=== PATIENT | female | born 1960 | race Caucasian/White ===

== ENCOUNTER 2018-02-17 21:14 | Inpatient (IN) | payer BC ==
[2018-02-17] MEDS ORDERED: Ondansetron INJ* 2 MG/ML VIAL IV ONE (21:25)
[2018-02-17] MEDS ORDERED: NS 0.9% 1000 ML* 1,000 ML IV ONE ×2 (21:25→21:56)
[2018-02-17] MEDS ORDERED: Morphine INJ* 2 MG/ML 1 ML SYRINGE (TWO MG - NEW SYRINGE VERSION) IV ONE (21:25)
[2018-02-17] MEDS ORDERED: Ticagrelor* 90 MG TAB PO ONE (21:25)
[2018-02-17] MEDS ORDERED: Aspirin 81 mg CHEW TAB* 81 MG TAB.CHEW PO ONE (21:25)
[2018-02-17] MEDS ORDERED: Heparin for STEMI(*) 5,000 UNITS/ML 1 ML VIAL IV ONE (21:27)
[2018-02-17] MEDS ORDERED: Morphine INJ* 4 MG/ML 1 ML SYRINGE (NEW SYRINGE VERSION) ONE (21:29)
--- NOTE | 2018-02-17 21:33 | ED ---
HPI Chest Pain - HPI Summary HPI Summary: This is scribe Mo Campoverde documenting for attending Dr. Alcira Dunaway MD. This patient is a 57 year old F BIBA accompanied by her with a chief complaint of syncope since just PLUCK SEPARATOR. Patient reports diaphoresis, CP, and SOB. Pt was found at a concert with her where she had LOC. Pts reports that they were dancing when she bent over and passed out completely. She was carried out of the theater by EMS. Pt was found apneic and pulseless by EMS. She was given 2 Narcan en route, 4 in total. She was shocked 3 times with the AED, each time followed immediately by CPR, with no spontaneous pulses after the shocks. In the ambulance, she spontaneously started breathing for 3 minutes and then stopped again. Pt was cyanotic and completely drenched in sweat in the ambulance and the ED. EMS reports that her teeth were clenched en route. PMHX HTN, Crohns. No PMHx heart attack. SHX no EtOH, occasional marijuana use, lives in [place]. RX Stelara. Pt was not feeling well this evening before the concert but went anyways. Pt is not aware where she is in the ED. Pts reports she started a new medication two days ago for her Crones, called Stelara , and she has not been responding well to the change. The pt was in the hospital 2 weeks ago for Crones, has complained of CP since then. I, Dr. Dunaway, personally performed the services described in this documentation as scribed in my presence and it is both accurate and complete. - History of Current Complaint Chief Complaint: EDChestPainROMI Hx Obtained From: Family/Mushroom Laborer - , EMS Onset/Duration: Started Minutes Ago, Still Present Timing: Constant Initial Severity: Moderate Current Severity: Moderate Pain Intensity: 4 Pain Scale Used: 0-10 Numeric Chest Pain Location: Mid Sternal Associated Signs and Symptoms: Positive: Chest Pain, Shortness of Breath, Syncope, Diaphoresis - Allergy/Home Medications Allergies/Adverse Reactions: Allergies Allergy/AdvReac Type Severity Reaction Status Date / Time No Known Allergies Allergy Verified 02/17/18 21:26 PMH/Surg Hx/FS Hx/Imm Hx Cardiovascular History: Reports: Hx Hypertension GI History: Reports: Hx Crohn's Disease Infectious Disease History: No Infectious Disease History: Denies: Traveled Outside the [place] in Last 30 Days - Family History Known Family History: Positive: Hypertension - Social History Alcohol Use: None Substance Use Type: Reports: Marijuana Review of Systems Positive: Skin Diaphoresis Positive: Chest Pain Positive: Shortness Of Breath Positive: Syncope All Other Systems Reviewed And Are Negative: Yes Physical Exam - Summary Physical Exam Summary: GENERAL: Patient is a well-developed and morbidly obese female who is lying comfortable in the stretcher. Patient is not in any acute respiratory distress. HEAD AND FACE: No signs of trauma. No ecchymosis, hematomas or skull depressions. No sinus tenderness. EYES: PERRLA, EOMI x 2, No injected conjunctiva, no nystagmus. EARS: Hearing grossly intact. Ear canals and tympanic membranes are within normal limits. MOUTH: Oropharynx within normal limits. NECK: Supple, trachea is midline, no adenopathy, no JVD, no carotid bruit, no c- spine tenderness, neck with full ROM. CHEST: Symmetric, no tenderness at palpation LUNGS: Clear to auscultation bilaterally. No wheezing or crackles. CVS: Regular rate and rhythm, S1 and S2 present, no murmurs or gallops appreciated. ABDOMEN: Soft, non-tender. No signs of distention. No rebound no guarding, and no masses palpated. Bowel sounds are normal. EXTREMITIES: FROM in all major joints, no edema, no cyanosis or clubbing. NEURO: Alert and oriented x 3. No acute neurological deficits. Speech is normal and follows commands. SKIN: Dry and warm Triage Information Reviewed: Yes Vital Signs On Initial Exam: Initial Vitals Temp Pulse Resp BP Pulse Ox 97.8 F 89 24 118/79 96 02/17/18 21:17 02/17/18 21:17 02/17/18 21:17 02/17/18 21:17 02/17/18 21:17 Vital Signs Reviewed: Yes Diagnostics - Vital Signs Vital Signs Temp Pulse Resp BP Pulse Ox 02/17/18 21:17 97.8 F 89 24 118/79 96 - Laboratory Result Diagrams: 02/17/18 21:28 02/17/18 21:28 Lab Statement: Any lab studies that have been ordered have been reviewed, and results considered in the medical decision making process. - CT CXR CT Interpretation Completed By: ED Physician - no acute processes, pending official report - EKG 21:25 Cardiac Rate: NL EKG Rhythm: Sinus Rhythm - 85 EKG Interpretation: ST elevation in V3 and AVF; ST depr in 1 & AVL, consistent with inf wall CA Chest Pain Course/Dx - Course Course Of Treatment: This patient is a 57 year old F BIBA accompanied by her with a chief complaint of syncope since just PLUCK SEPARATOR. Patient reports diaphoresis, CP, and SOB. Pt was found at a concert with her where she had LOC. Pts reports that they were dancing when she bent over and passed out completely. She was carried out of the theater by EMS. Pt was found apneic and pulseless by EMS. She was given 2 Narcan en route, 4 in total. She was shocked 3 times with the AED, each time followed immediately by CPR, with no spontaneous pulses after the shocks. In the ambulance, she spontaneously started breathing for 3 minutes and then stopped again. Pt was cyanotic and completely drenched in sweat in the ambulance and the ED. EMS reports that her teeth were clenched en route. PMHX HTN, Crohns. No PMHx heart attack. SHX no EtOH, occasional marijuana use, lives in [place]. RX Stela. Pt was not feeling well this evening before the concert but went anyways. Pt is not aware where she is in the ED. Pts reports she started a new medication two days ago for her Crones, called Sadaf, and she has not been responding well to the change. The pt was in the hospital 2 weeks ago for Crones, has complained of CP since then. An EKG reveals ST elevation in V3 and AVF, ST depression in 1 and AVL, most consistent with inferior wall CA. CXR reveals, per ED physician, no acute processes. Pending official report. Test results with no significant abnormalities except for low potassium (2.6) and elevated lactic acid (5.5). In the ED course the patient was given Aspirin, Heparin, and IV fluids. We discussed patient care with Dr. Garduno and they recommended admission to the Department Clerk. The patient is agreeable with this plan. - Diagnoses Provider Diagnoses: Acute CA, inferior wall, Cardiac arrest - Critical Care Time Critical Care Time: 30-74 min - 40 mins Discharge - Sign-Out/Discharge Documenting (check all that apply): Patient Departure - admit - Discharge Plan Condition: Fair Disposition: ADMITTED TO [facility] - Attestation Statements Document Initiated by Scribe: Yes Documenting Scribe: Mo Campoverde Provider For Whom Scribe is Documenting (Include Credential): Alcira Dunaway MD Scribe Attestation: Mo Naranjo, scribed for Alcira Dunaway MD on 02/17/18 at 2221.
[2018-02-17 21:36] LABS: ABS Basophils 0.1 10^3/ul (0-0.2); ABS Eosinophils 0.1 10^3/ul (0-0.6); ABS Lymphocytes 3.8 10^3/ul (1.0-4.8); ABS Monocytes 0.8 10^3/ul (0-0.8); ABS Neutrophils 7.6 10^3/ul (1.5-7.7); ABS Nucleated RBC 0 10^3/ul; Eosinophil % 1.1 % (0-6); Hematocrit 36 % (35-47); Hemoglobin 11.8 g/dl (12.0-16.0); Lymphocyte % 30.3 % (25-47); Mean Corpuscular HGB Conc 32 g/dl (31-36); Mean Corpuscular Hemoglobin 25 pg (27-31); Mean Corpuscular Volume 76 fL (80-97); Mean Platelet Volume 6.6 um3 (7.4-10.4); Nucleated Red Blood Cells % 0.1; Platelet Count 357 10^3/ul (150-450); Red Cell Distribution Width 20 % (10.5-15); White Blood Count 12.5 10^3/ul (3.5-10.8)
[2018-02-17 21:44] LABS: INR 1.03 (0.77-1.02)
[2018-02-17] MEDS ORDERED: Heparin 2 UNITS/ML IVPREMIX* 2,000 ML IV ONE (21:49)
[2018-02-17] MEDS ORDERED: Lidocaine 1% INJ* 10 MG/ML 30 ML SDV ONE (21:49)
[2018-02-17] MEDS ORDERED: Midazolam* 1 MG/ML 10 ML VIAL (10 MG) ONE (21:52)
[2018-02-17] MEDS ORDERED: fentaNYL* 50 MCG/ML 2 ML VIAL (100 MCG VIAL) ONE (21:52)
[2018-02-17] MEDS ORDERED: Heparin(*) 1000 UNIT/ML 10 ML VIAL CATH LAB IV ONE (21:52)
[2018-02-17] MEDS ORDERED: nitroGLYCERIN DRIP* 25,000 MCG/250 ML BTL ONE (21:53)
[2018-02-17] MEDS ORDERED: Iohexol 350 (CONTRAST) 200 ML MDV IV ONE ×2 (21:53→22:09)
[2018-02-17] MEDS ORDERED: VERAPAMIL 2.5 MG/ML 2 ML VIAL ** 5 mg/2 ml ONE (21:53)
[2018-02-17 21:54] LABS: EGFR Non-African American 53.8 (>60)
[2018-02-17] MEDS ORDERED: Potassium Chlor TAB* 20 MEQ TAB.ER PO ONE (21:56)
[2018-02-17] MEDS ORDERED: Magnesium Sulfate 2 GM IV* 2 GM/50 ML BAG IVPB ONE (21:56)
[2018-02-17] MEDS ORDERED: KCL 20 MEQ/100 ML IVPREMIX* 20 MEQ/100 ML BAG IV ONE (21:57)
[2018-02-17] MEDS ORDERED: KCL 20 MEQ/100 ML IVPREMIX* 20 MEQ/100 ML BAG ONE (21:58)
[2018-02-17] MEDS ORDERED: Iodixanol* (CONTRAST) 320 MG/ML 100 ML SDV ONE (22:15)
[2018-02-17] MEDS ORDERED: Docusate CAP* 100 MG PO PRN (23:16)
[2018-02-17] MEDS ORDERED: Al Hydrox/Mg Hydrox/Simet LIQ* 30 ML UDC PO PRN (23:16)
[2018-02-17] MEDS ORDERED: Senna TAB PO PRN (23:16)
[2018-02-17] MEDS ORDERED: Ondansetron INJ* 2 MG/ML VIAL IV PRN (23:16)
[2018-02-17] MEDS ORDERED: Magnesium Sulfate 1 GM IV* 1 GM/100 ML BAG IV ONE (23:19)
[2018-02-18] MEDS ORDERED: Dextrose 50% Syringe 50 ML* 25 GM/50 ML SYRINGE IV PUSH PRN (00:04)
[2018-02-18] MEDS: NS 0.9% 1000 ML* 1,000 ML IV SCH ×2 (00:44→09:21)
[2018-02-18] MEDS ORDERED: Iodixanol* (CONTRAST) 320 MG/ML 100 ML SDV IV ONE (00:45)
[2018-02-18] MEDS: Morphine VIAL* 4 MG/ML VIAL (1 ml vial) IV PRN ×5 (00:51→21:54)
--- NOTE | 2018-02-18 02:09 | RAD ---
EXAM: CT Angiography Chest With Intravenous Contrast EXAM DATE/TIME: Exam ordered 02/18/2018 1:15 AM CLINICAL HISTORY: 57 years old, female; Pain; Chest wall pain and sternal or substernal pain; Patient HX: Cardiac arrest earlier /chest compression's; Additional info: R/O pe TECHNIQUE: Axial computed tomographic angiography images of the chest with intravenous contrast using pulmonary embolism protocol. All CT scans at this facility use at least one of these dose optimization techniques: automated exposure control; mA and/or kV adjustment per patient size (includes targeted exams where dose is matched to clinical indication); or iterative reconstruction. MIP reconstructed images were created and reviewed. Coronal and sagittal reformatted images were created and reviewed. CONTRAST: 96 mL of VISIPAQUE 320 administered intravenously. COMPARISON: No relevant prior studies available. FINDINGS: Pulmonary arteries: The main pulmonary artery measures 27 mm. No pulmonary embolism is identified. Aorta: The ascending thoracic aorta measures 31 mm. No thoracic aortic aneurysm. Lungs: Mild bibasilar fibro-atelectatic change, greatest in the lower lobes. There is question of minimal patchy ground glass infiltrates. No mass. Pleural space: Unremarkable. No significant effusion. No pneumothorax. Heart: Coronary artery calcifications are present. No significant pericardial effusion. No evidence of RV dysfunction. Bones/joints: No acute fracture. No dislocation. Soft tissues: Unremarkable. Lymph nodes: Unremarkable. No enlarged lymph nodes. IMPRESSION: 1. Mild bibasilar fibro-atelectatic change, greatest in the lower lobes with question of minimal patchy ground glass infiltrates. 2. Otherwise negative CTA chest. No pulmonary embolism is identified. To contact [facility] with a general question: [facility] - [phone] For direct physician to physician contact: Physician Hotline - [phone] [facility] ([facility] Facility ID #[id number])
--- NOTE | 2018-02-18 02:11 | CONS ---
INTERVENTIONAL CARDIOLOGY CONSULT NOTE: DATE OF CONSULT: 02/17/18 HISTORY OF PRESENT ILLNESS: A 57-year-old woman brought by paramedics from a local theater where she had a witnessed arrest. Interventional Cardiology was consulted because of an abnormal electrocardiogram and witnessed in the field arrest resuscitated by 3 AED shocks and CPR. She has no previous cardiac history, history is obtained primarily from her . The patient is arousable and oriented, but has difficulty with short-term memory. She apparently has a longstanding history of Crohn's disease, was discharged from [facility] on 02/08/18 after a flare-up where she had unremitting diarrhea, nausea, vomiting. On 02/15/18, she received an infusion of Stelara, a new drug for her. Apparently, she did not feel well today and called her regional flatbed truck driver's office, was told to hydrate. While at this concert, she and her stood up to dance and the patient suddenly collapsed. She was unresponsive, CPR was started by bystanders. An AED was applied and advised a shock. Paramedics arrived, apparently she had return of circulation briefly a few times, but reverted to no palpable pulse. There are no strips from the paramedics. . At arrival in the ER, she was apparently conscious, EKG showed sinus rhythm at 85 with a long QTc of 599 msec, and T wave inversion in I, aVL, V2 with nonspecific ST changes in the other leads, there was a wandering baseline with perhaps a fraction of a millimeter of inferior ST elevation. Because of her sudden cardiac arrest and repolarization abnormalities and the inability to rule out a non-ST elevation infarct, she underwent emergent catheterization. After resuscitation, the patient is complaining of severe chest pain, which at least in large part is from her rib cage, but she cannot determine if she has any other kind of chest pain. She had no chest pain prior to passing out. She has no previous history of heart disease, does not carry the diagnosis of an abnormal EKG previously. PAST MEDICAL HISTORY: 1. Obesity. 2. Hypertension. 3. Crohn's disease. SOCIAL HISTORY: She is an intermittent smoker. She is . FAMILY HISTORY: Apparently negative for premature coronary artery disease. MEDICATIONS: Prehospital medications at this point are unclear, her and friends will gather this information and call us to the ICU. ALLERGIES: None to medications. REVIEW OF SYSTEMS: She denies any history of stroke, GI bleeding, even with her Crohn's flare-ups. Cardiac: No prior history. Pulmonary: Negative. Remainder all negative. PHYSICAL EXAMINATION: When seen in the ER, BP 118/79, pulse 89. Her lungs were clear, JVP was not elevated. Carotids were palpable. She was able to converse, give some limited history, was aware of her surroundings, did not know the date, had trouble remembering why she was in [place]. She denied any focal neurological symptoms. Cardiac Exam: Rhythm regular, no audible gallop or murmur, but heart sounds were very distant. Abdomen: Obese, nontender. No bruits. Radial, femoral, pedal pulses palpable. No cyanosis, clubbing, or edema. Neuro: She grossly moved all extremities equally, the face was symmetrical, EOMs grossly symmetrical. DIAGNOSTIC STUDIES/LAB DATA: EKG, as above. Hemoglobin 11.8 with microcytosis at 76. Sodium 125, potassium 2.6, BUN 10, creatinine 1.06. GFR 53.8. Random blood sugar 273 with lactate of 5.5. Magnesium low at 1.8. Troponin 0.08 after CPR and at least 1 defibrillation. BNP 123. Potassium and magnesium were started in the ER where she also received Brilinta and aspirin. IMPRESSION: Cardiac arrest. She has repolarization changes, has chest pain, which may be from CPR and/or may be from ischemia, at this point, I cannot rule out acute coronary syndrome with a non-ST elevation infarct. She was recommended to undergo emergent catheterization. She has some cognitive impairment currently without any gross motor deficit. She has QT prolongation, but it is unknown whether this is from her metabolic derangement or preexisting. We will need to obtain old records. [id number]/[facility] #: [id number] [facility]
--- NOTE | 2018-02-18 03:25 | HP ---
CC: Dr. Tucker in [place] * HISTORY AND PHYSICAL: DATE OF ADMISSION: 02/17/18. TIME OF EVALUATION: 2300. PRIMARY CARE PHYSICIAN: Dr. Tucker in [place]. CHIEF COMPLAINT: Cardiac arrest. HISTORY OF PRESENT ILLNESS: This is a 57-year-old female with a past medical history of Crohn's, diabetes, and hypertension, who presents to the emergency room after having a cardiac arrest. The history is obtained somewhat from the patient, but also the , who is at the bedside. The patient was recently admitted at [facility] for a Crohn's flare. She was there for nearly a week and was discharged home on the . They started her on a new Crohn's regimen that included an infusion of Stelara on the and he just completed prednisone and Flagyl. On the 02/14/18, she was having 2 normal stool per day, normally has diarrhea and she was increasing her solid intake as well and doing relatively well. She has been having dizzy spells immediately upon standing that are brief and does not occur every time. Today, she was feeling weak. She had an episode of vomiting. The plan was for her and her and friends to drive in town to see the [employer]. They called her primary to make sure that it was no reason why she should not be able to go. They said it was okay to stay hydrated, which she has been drinking a lot of water. When they got to the [employer], they were doing well. They stood up for the first song, they sat back down for the 4th song. They stood up again and then she quickly collapsed into her chair. The noticed that she was unresponsive. People immediately came rushing over there and started chest compression. EMS came and they continued with chest compressions, it appears that there was an AED on site that stated there was shockable rhythm and she was shocked. We do not have these rhythm strips to see what her rhythm actually was. It appears that she had 10 to 15 minutes of CPR due to the history and her EKG, Dr. Garduno was contacted for evaluation and he promptly brought her to the ammunition assembly laborer where she had clean coronaries. On arrival to the ICU, I was contacted, the patient is alert, somewhat out of it, but able to answer questions appropriately. She remembers being at the concert, but she does not really remember anything after that. She is complaining of pleuritic pain at this time and chest pain. No nausea, vomiting. No abdominal pain. No urinary symptoms. Review of systems is limited at this time due to the patient being sedated for the cath. In the emergency room, the patient was given 2 L of fluid. She was given Brilinta in the ammunition assembly laborer. She was given 20 mEq of potassium IV, Zofran 8 mg, morphine 4 mg, heparin 4000 units, 4 bolus of aspirin. She was also given heparin and Versed in the ammunition assembly laborer. PAST MEDICAL HISTORY: 1. Crohn's, was recently hospitalized for a Crohn's flare, discharged on , she is followed by Dr. Chris Bales at [facility]. 2. History of hypokalemia. 3. Diabetes. 4. GERD. 5. Hypertension. MEDICATIONS: We will need to get an official med rec, the patient recalls most of them. 1. Iron pill p.o. b.i.d. 2. Prilosec 20 mg daily. 3. Victoza daily. 4. Losartan/HCTZ 100/25 mg daily. 5. Metformin 500 mg p.o. daily. 6. Mercaptopurine 50 mg daily. 7. Stelara injections. ALLERGIES: No known drug allergies. FAMILY HISTORY: Mother is alive. No history of [place]. Father , aged 76 from GBM, no history of early coronary disease. SOCIAL HISTORY: The patient lives in [place] with her , Lanny, who is her healthcare proxy. She works for insurance, Medicare and Medicaid. She quit smoking 1 month ago. She was smoking 2 cigarettes per day. No alcohol use. She does use marijuana. Code status is full code. REVIEW OF SYSTEMS: Limited and as mentioned in the HPI, limited due to patient' s sedation. PHYSICAL EXAMINATION GENERAL: The patient is sedated, but awake and answer questions appropriately. VITAL SIGNS: Temp 97.1, pulse rate 84, respiratory rate 22, oxygen saturation 96% on room air, blood pressure 88/40. HEENT: Head, normocephalic. Pupils are dilated and sluggish. Conjunctivae are anicteric. Oropharynx: Mucous membranes dry. NECK: Supple. No lymphadenopathy. RESPIRATORY: Diminished breath sounds. No wheeze, rhonchi, or rales. CARDIAC: Regular rate and rhythm. Soft systolic murmur heard throughout. ABDOMEN: Morbidly obese. Positive bowel sounds. Soft, nontender, and nondistended. EXTREMITIES: No clubbing, cyanosis or edema. +1 DPs. NEUROLOGIC: She is alert and oriented x3. No gross focal or neurologic deficits. LABORATORY DATA: White count 12.5, hemoglobin 11.8, hematocrit 36, platelets 357. INR was 1.03. Sodium 125, potassium 2.6, chloride 89, bicarb 17. BUN 10, creatinine 1.06. Glucose 273, lactic acid is 5.5, glucose 201, AST 41, ALT 59, mag 1.8, trop is 0.08. BNP 123. TSH 4.72. RADIOGRAPHIC DATA: EKG shows sinus rhythm with a prolonged QTc of 557 with inverted T-waves and minimal ST elevation in the anterior leads. Chest x-ray was read as unremarkable. ASSESSMENT: This is a 57-year-old female with past medical history of Crohn's, diabetes, and hypertension, who presents to the emergency room after having a cardiac arrest, found to have clean coronary arteries. 1. Cardiac arrest. Assessment: The patient with presyncopal symptoms leading up to her collapse. It is possible this was a syncopal episode. The concern initially is did she truly ever lose a pulse or was this a syncopal episode. However, she did have an AED placed that stated she had a shockable rhythm if it was truly accurate. The other concern is her EKG shows a prolonged QTc. Dr. Garduno did the cath, which did not show any coronary disease, but did show hyperdynamic ventricle. The question is was this an arrhythmia in the setting of long QT syndrome or did she have hypertrophic obstructive cardiomyopathy. Also, on the differential is the pulmonary embolism with her recent hospitalization, though she did state she was getting injections in her abdomen for DVT prophylaxis. Plan: We will continue her in the ICU. Continue electrolyte replacement with magnesium and potassium. We will repeat those labs this evening. Continue her on fluids. I am going to order a CTA to rule out pulmonary embolism. She has an echo scheduled for the morning. The merit system director are going to follow up with her as well. We are going to try to obtain the strips from EMS but I suspect if its from an AED then we will not be able to obtain the strips. 2. Hypokalemia as mentioned this is likely why she was vomiting and she may chronically run low with her diarrhea, though she has not been having diarrhea. She also has a low sodium. It is unclear if she has some sort of endocrinology disorder. Plan: As mentioned, repeat her potassium and mag, and repeat her labs. 3. Chronic medical problems: Diabetes. We will place her on lispro sliding scale and hold her oral agents. 4. Gastroesophageal reflux disease. Continue omeprazole. 5. Hypertension. Her blood pressures are soft. We will hold her losartan and hydrochlorothiazide. 6. Crohn's. We will continue her on mercaptopurine. 7. FEN. We will do a bedside swallow and if she passes, we will allow for diabetic diet. 8. DVT prophylaxis. The patient scores moderate risk. We will place her on heparin subcu t.i.d. 9. Code status. Full code. TIME SPENT: Greater than 60 minutes were spent doing the history and physical, more than half the time was spent in direct patient contact and critical care time. We will sign out to Dr. Young, and we are also in discussion with Dr. Garduno. [id number]/[facility] #: [id number] [facility]
[2018-02-18] MEDS: Heparin VIAL(*) 5000 UNITS/ML VIAL (FIVE THOUSAND) SUBCUT SCH ×3 (05:06→21:51)
[2018-02-18 05:28] LABS: ABS Basophils 0 10^3/ul (0-0.2); ABS Eosinophils 0 10^3/ul (0-0.6); ABS Lymphocytes 0.8 10^3/ul (1.0-4.8); ABS Monocytes 0.4 10^3/ul (0-0.8); ABS Neutrophils 6.4 10^3/ul (1.5-7.7); ABS Nucleated RBC 0 10^3/ul; Eosinophil % 0.1 % (0-6); Hematocrit 33 % (35-47); Hemoglobin 10.8 g/dl (12.0-16.0); Mean Corpuscular HGB Conc 33 g/dl (31-36); Mean Corpuscular Hemoglobin 25 pg (27-31); Mean Corpuscular Volume 76 fL (80-97); Mean Platelet Volume 7.1 um3 (7.4-10.4); Nucleated Red Blood Cells % 0; Platelet Count 221 10^3/ul (150-450); Red Blood Count 4.36 10^6/ul (4.00-5.40); Red Cell Distribution Width 19 % (10.5-15); White Blood Count 7.6 10^3/ul (3.5-10.8)
[2018-02-18] MEDS ORDERED: Omeprazole CAP* 20 MG PO SCH (06:00)
[2018-02-18 06:37] LABS: EGFR Non-African American 85.5 (>60)
--- NOTE | 2018-02-18 07:31 | RAD ---
Indication: Shortness of breath. Chest pain. Cardiac arrest. Comparison: Subsequent CT chest of February 18, 2018. Technique: Upright AP 2130 hours Report: Mild prominence of the interstitial markings. No focal pulmonary lesion, compelling alveolar consolidation, pleural effusion, pneumothorax. The heart, pulmonary vasculature, and mediastinal contours are unremarkable. IMPRESSION: #. No acute cardiopulmonary process evident. R0
[2018-02-18] MEDS ORDERED: Perflutren Lipid Microsphere* 3 ML VIAL ONE (08:10)
--- NOTE | 2018-02-18 08:22 | PN ---
Date of Service: 02/18/18 Critical Care Services: 57F with htn, dm, crohns disease presents after VT/VF? cardiac arrest. S/p LHC without obstructive cad. Long QT on admission. Initial labs abnormal. 02/18: patient complains of chest pain 2/2 cpr. TTE pending. CTA chest negative. Vital Signs: Temp Pulse Resp BP SpO2 FiO2 98.1 F 71 15 100/66 97 02/18/18 07:30 02/18/18 07:30 02/18/18 07:30 02/18/18 07:30 02/18/18 07:30 Physical Exam: Gen - nad heent - ncat, eomi, perrl neck - no jvd cv - s1/s2, no murmur, chest tender to palpation lungs - cta, no wheeze abd - soft, nt, nd ext - no cce neuro - non-focal Fluid Balance (Past 24 Hours): I= O= Net Intake & Output 02/16/18 02/17/18 02/18/18 02/19/18 06:59 06:59 06:59 06:59 Intake Total 1092 Output Total 1275 120 Balance -183 -120 Weight 105 kg Intake: IV Fluids 1092 NS (0.9%) 1092 Output: Kendrick 1275 120 Labs: Laboratory Results - last 24 hr 02/17/18 02/17/18 02/17/18 21:28 21:28 21:28 WBC 12.5 H RBC 4.80 Hgb 11.8 L Hct 36 MCV 76 L MCH 25 L MCHC 32 RDW 20 H Plt Count 357 MPV 6.6 L Neut % (Auto) 61.0 Lymph % (Auto) 30.3 Marshall % (Auto) 6.6 Eos % (Auto) 1.1 Baso % (Auto) 1.0 Absolute Neuts (auto) 7.6 Absolute Lymphs (auto) 3.8 Absolute Monos (auto) 0.8 Absolute Eos (auto) 0.1 Absolute Basos (auto) 0.1 Absolute Nucleated RBC 0 Nucleated RBC % 0.1 INR (Anticoag Therapy) 1.03 H APTT 28.0 Sodium 125 L Potassium 2.6 L* Chloride 89 L Carbon Dioxide 17 L Anion Gap 19 H BUN 10 Creatinine 1.06 H Est GFR ( Amer) 65.1 Est GFR (Non-Af Amer) 53.8 BUN/Creatinine Ratio 9.4 Glucose 273 H POC Glucose (mg/dL) Hemoglobin A1c Lactic Acid Calcium 8.7 Magnesium 1.8 L Total Bilirubin 0.90 AST 41 H ALT 59 H Alkaline Phosphatase 57 Total Creatine Kinase 123 CK-MB (CK-2) 6.6 H Troponin I 0.08 H* B-Natriuretic Peptide Total Protein 6.0 L Albumin 3.6 Globulin 2.4 Albumin/Globulin Ratio 1.5 Triglycerides Cholesterol LDL Cholesterol HDL Cholesterol TSH 4.72 02/17/18 02/17/18 02/17/18 21:28 21:28 21:28 WBC RBC Hgb Hct MCV MCH MCHC RDW Plt Count MPV Neut % (Auto) Lymph % (Auto) Marshall % (Auto) Eos % (Auto) Baso % (Auto) Absolute Neuts (auto) Absolute Lymphs (auto) Absolute Monos (auto) Absolute Eos (auto) Absolute Basos (auto) Absolute Nucleated RBC Nucleated RBC % INR (Anticoag Therapy) APTT Sodium Potassium Chloride Carbon Dioxide Anion Gap BUN Creatinine Est GFR ( Amer) Est GFR (Non-Af Amer) BUN/Creatinine Ratio Glucose POC Glucose (mg/dL) Hemoglobin A1c 6.5 H Lactic Acid 5.5 H* Calcium Magnesium Total Bilirubin AST ALT Alkaline Phosphatase Total Creatine Kinase CK-MB (CK-2) Troponin I B-Natriuretic Peptide 123 H Total Protein Albumin Globulin Albumin/Globulin Ratio Triglycerides Cholesterol LDL Cholesterol HDL Cholesterol TSH 02/17/18 02/17/18 02/17/18 23:45 23:53 23:53 WBC RBC Hgb Hct MCV MCH MCHC RDW Plt Count MPV Neut % (Auto) Lymph % (Auto) Marshall % (Auto) Eos % (Auto) Baso % (Auto) Absolute Neuts (auto) Absolute Lymphs (auto) Absolute Monos (auto) Absolute Eos (auto) Absolute Basos (auto) Absolute Nucleated RBC Nucleated RBC % INR (Anticoag Therapy) APTT Sodium Potassium 3.4 L Chloride Carbon Dioxide Anion Gap BUN Creatinine Est GFR ( Amer) Est GFR (Non-Af Amer) BUN/Creatinine Ratio Glucose POC Glucose (mg/dL) 201 H Hemoglobin A1c Lactic Acid 1.1 Calcium Magnesium Total Bilirubin AST ALT Alkaline Phosphatase Total Creatine Kinase CK-MB (CK-2) Troponin I 0.27 H* B-Natriuretic Peptide Total Protein Albumin Globulin Albumin/Globulin Ratio Triglycerides Cholesterol LDL Cholesterol HDL Cholesterol TSH 02/18/18 02/18/18 02/18/18 05:18 05:18 07:55 WBC 7.6 RBC 4.36 Hgb 10.8 L Hct 33 L MCV 76 L MCH 25 L MCHC 33 RDW 19 H Plt Count 221 MPV 7.1 L Neut % (Auto) 84.4 H Lymph % (Auto) 10.0 L Marshall % (Auto) 5.3 Eos % (Auto) 0.1 Baso % (Auto) 0.2 Absolute Neuts (auto) 6.4 Absolute Lymphs (auto) 0.8 L Absolute Monos (auto) 0.4 Absolute Eos (auto) 0 Absolute Basos (auto) 0 Absolute Nucleated RBC 0 Nucleated RBC % 0 INR (Anticoag Therapy) APTT Sodium 132 L Potassium 3.0 L Chloride 101 Carbon Dioxide 22 Anion Gap 9 BUN 8 Creatinine 0.71 Est GFR ( Amer) 103.4 Est GFR (Non-Af Amer) 85.5 BUN/Creatinine Ratio 11.3 Glucose 163 H POC Glucose (mg/dL) 140 H Hemoglobin A1c Lactic Acid Calcium 7.8 L Magnesium Total Bilirubin AST ALT Alkaline Phosphatase Total Creatine Kinase CK-MB (CK-2) Troponin I 0.31 H* B-Natriuretic Peptide Total Protein Albumin Globulin Albumin/Globulin Ratio Triglycerides 202 Cholesterol 164 LDL Cholesterol 97 HDL Cholesterol 26.9 TSH Studies: CXR 02/17 IMPRESSION: #. No acute cardiopulmonary process evident. CTA Chest 02/18 IMPRESSION: 1. Mild bibasilar fibro-atelectatic change, greatest in the lower lobes with question of minimal patchy ground glass infiltrates. 2. Otherwise negative CTA chest. No pulmonary embolism is identified. TTE 02/18 Pending [facility] 02/18 Official Report Pending Impression: 57F with htn, dm, crohns disease presents with cardiac arrest possibly 2/2 long qtc vs hypokalemia vs syncope from dehydration Plan: Neuro - pain control CV - cardiac arrest? - unclear if actually had arrest or just syncope - [facility] negative - long qtc on initial ekg - repeat ekg now - keep K > 4, Mg > 2 - tte pending - cta chest negative for PE - cardiology consult - monitor on telemetry Pulm - oxygenating well on room air ID - no evidence of infection GI - crohns disease - c/w 6MP and stelara Renal - hyponatremia, hypokalemia - replete lytes prn - monito i/o Heme - monitor cbc Endo - check fs, niss Lines - piv PPx - gi/dvt Full Code Critical Care Time: 45 mins
[2018-02-18] MEDS ORDERED: NS 0.9% 1000 ML* 1,000 ML IV ONE (08:23)
[2018-02-18] MEDS: KCL 10 MEQ/50 ML IVPREMIX* 10 MEQ/50 ML BAG IV SCH ×3 (09:13→11:58)
[2018-02-18] MEDS: Mercaptopurine TAB* 50 MG PO SCH (09:14)
[2018-02-18] MEDS: Acetaminophen TAB* 325 MG PO PRN ×2 (09:14→13:16)
[2018-02-18] MEDS: Potassium Chlor TAB* 20 MEQ TAB.ER PO SCH ×2 (09:14→13:16)
--- NOTE | 2018-02-18 09:17 | CONSULT ---
Subjective Date of Service: 02/18/18 Interval History: Admission Date: 02/17/18 CARDIOLOGY CONSULT NOTE: DATE OF CONSULT: 02/18/18 CC: Out of hospital cardiac arrest Reason for consult: Out of hospital cardiac arrest HISTORY OF PRESENT ILLNESS: Lily Calderón is a 57-year-old woman from [place] visiting for a concert when she had sudden collapse. There was no preceeding prodrome or symptoms other than chronic GI symptoms. She received bystander CPR and successful AED resuscitation. She has history of crohn's disease with electrolyte deficiency and was on flagyl up until Thursday. Her QT interval was severely prolonged. She has no history of long QT syndrome. She has no family history of early unexplained sudden . She is neurologically intact. A cardiac catheterization did not show evidence of obstructive CAD. An echocardiogram showed a structurally normal heart. She complains of musculoskeletal chest pain post-CPR PAST MEDICAL HISTORY: 1. Obesity. 2. Hypertension. 3. Crohn's disease with recent admission at [facility] for flair SOCIAL HISTORY: She is an intermittent smoker. She is , present FAMILY HISTORY: No early unexplained sudden in a first or second degree relative ALLERGIES: None to medications. Medications Active Medications: Acetaminophen (Tylenol Tab*) 650 mg PO Q4H PRN PRN Reason: FEVER/PAIN Al Hydrox/Mg Hydrox/Simethicone (Maalox Plus*) 30 ml PO Q6H PRN PRN Reason: INDIGESTION Dextrose (D50w Syringe 50 Ml*) 12.5 gm IV PUSH .FOR FS < 60 - SS PRN PRN Reason: FS < 60 Docusate Sodium (Colace Cap*) 100 mg PO BID PRN PRN Reason: CONSTIPATION Heparin Sodium (Porcine) (Heparin Vial(*)) 5,000 units SUBCUT Q8HR [facility] Last Admin: 02/18/18 05:06 Dose: 5,000 units Sodium Chloride (Ns 0.9% 1000 Ml*) 1,000 mls @ 125 mls/hr IV .per rate [facility] Stop: 02/23/18 23:29 Last Admin: 02/18/18 00:44 Dose: 125 mls/hr Potassium Chloride (Potassium Chloride 10 Meq/50 Ml Ivpremix*) 10 meq in 50 mls @ 50 mls/hr IV Q1H [facility] Stop: 02/18/18 11:59 Sodium Chloride (Ns 0.9% 1000 Ml*) 1,000 mls @ 1,000 mls/hr IV ONCE ONE Stop: 02/18/18 09:22 Insulin Human Lispro (Humalog*) 0 units SUBCUT AC [facility]; Protocol Mercaptopurine (Purinethol Tab*) 50 mg PO DAILY [facility] Morphine Sulfate (Morphine Vial*) 2 mg IV Q4H PRN PRN Reason: PAIN - MILD Last Admin: 02/18/18 05:22 Dose: 2 mg Nadolol (Corgard Tab*) 40 mg PO DAILY [facility] Omeprazole (Prilosec Cap*) 20 mg PO 0600 [facility] Last Admin: 02/18/18 05:06 Dose: 20 mg Potassium Chloride (Klor Con Er Tab*) 40 meq PO Q4H [facility] Stop: 02/18/18 13:01 Senna (Senokot Tab*) 1 tab PO BID PRN PRN Reason: CONSTIPATION Home Medications: Ferrous Sulfate TAB* 325 mg PO BID 02/18/18 [History Confirmed 02/18/18] Liraglutide (NF) [Victoza (NF)] 0 mg SUBCUT DAILY 02/18/18 [History Confirmed ] Losartan/Hydrochlorothiazide [Losartan Potassium/Hydroc 100-25 mg] 1 tab PO DAILY 02/18/18 [History Confirmed 02/18/18] Mercaptopurine TAB* [Purinethol TAB*] 50 mg PO 02/18/18 [History] Omeprazole CAP* [Prilosec CAP* 20 MG] 20 mg PO DAILY 02/18/18 [History Confirmed 02/18/18] Venlafaxine CAP (NF) [Effexor CAP (NF)] 75 mg PO DAILY 02/18/18 [History Confirmed 02/18/18] metFORMIN* [Glucophage 500 MG TAB *] 500 mg PO DAILY 02/18/18 [History Confirmed 02/18/18] budeosone-fumeoreraol recent flagyl Review of Systems - Measurements Intake and Output: Intake and Output Last 24 Hours 02/16/18 02/17/18 02/18/18 02/19/18 06:59 06:59 06:59 06:59 Intake Total 1092 Output Total 1275 120 Balance -183 -120 Weight 231 lb 7.766 oz Intake: IV Fluids 1092 NS (0.9%) 1092 Output: Kendrick 9352 120 - Review of Systems Constitutional Symptoms: Negative: Weight Gain, Weight Loss Dermatology: Negative: Rash, Skin Lesions HEENT: Negative: Change in Hearing, Vertigo Eyes: Negative: Change in Vision, Double Vision Thyroid: Negative: Cold Intolerance, Heat Intolerance, Weight Loss, Weight Gain Pulmonary: Negative: Cough, Sputum, Respiratory Distress, Shortness of Breath Cardiology: Positive: Syncope Negative: Shortness of Breath, Edema, Faintness Gastroenterology: Positive: Abdominal Pain, Nausea, Vomiting, Change in Bowel Habits Negative: Haematemesis, Melena Genital - Urinary: Negative: Dysuria, Hematuria Musculoskeletal: Negative: Joint Pain, Joint Stiffness Endocrinology: Positive: Obesity, Diabetes Negative: Diabetic Foot Ulcers, Calluses, Hirsutism, Menstrual Abnormalities , Polydipsia, Polyuria, Gynecomastia Hematologic/Lymphatic: Negative: Hx Leukemia, Hx Lymphoma Neurology: Negative: Dizziness, Change in Balancing, Change in Speech, Change in Sphincter Function, Hx of Stroke\TIA, Hx Seizures Psychiatry: Negative: Unusual Anxiety, Suicidal Ideation Allergic/Immunologic: Negative: Hx Anaphylaxis, Hx Angioedema, Hx HIV, Immunocompromise Review of Systems Statement: All other review of systems negative, unless stated above. Objective Vital Signs: Temp Pulse Resp BP Pulse Ox 98.2 F 74 18 108/69 100 02/18/18 08:30 02/18/18 08:30 02/18/18 08:30 02/18/18 08:30 02/18/18 08:30 Oxygen Devices in Use Now: None Appearance: nad, pleasant Ears/Nose/Mouth/Throat: Clear Oropharnyx Neck: NL Appearance and Movements; NL JVP, Trachea Midline Respiratory: Symmetrical Chest Expansion and Respiratory Effort, Clear to Auscultation Cardiovascular: NL Sounds; No Murmurs; No JVD, RRR, No Edema Abdominal: NL Sounds; No Tenderness; No Distention Extremities: No Edema, - - right radial cath site intact Skin: No Rash or Ulcers Neurological: Alert and Oriented x 3, - - sore ribs Laboratory Results: 02/18/18 05:18 02/18/18 05:18 INR (Anticoag Therapy) 1.03 (0.77-1.02) H 02/17/18 21:28 APTT 28.0 seconds (26.0-36.3) 02/17/18 21:28 Total Bilirubin 0.90 mg/dL (0.2-1.0) 02/17/18 21:28 AST 41 U/L (13-39) H 02/17/18 21:28 ALT 59 U/L (7-52) H 02/17/18 21:28 Alkaline Phosphatase 57 U/L (34-104) 02/17/18 21:28 CK-MB (CK-2) 6.6 ng/mL (0.6-6.3) H 02/17/18 21:28 B-Natriuretic Peptide 123 pg/mL (-100) H 02/17/18 21:28 Total Protein 6.0 g/dL (6.4-8.9) L 02/17/18 21:28 Albumin 3.6 g/dL (3.2-5.2) 02/17/18 21:28 Globulin 2.4 g/dL (2-4) 02/17/18 21:28 Albumin/Globulin Ratio 1.5 (1-3) 02/17/18 21:28 Triglycerides 202 mg/dL 02/18/18 05:18 Cholesterol 164 mg/dL 02/18/18 05:18 LDL Cholesterol 97 mg/dL 02/18/18 05:18 HDL Cholesterol 26.9 mg/dL 02/18/18 05:18 TSH 4.72 mcIU/mL (0.34-5.60) 02/17/18 21:28 mg 1.8 02/17/18 02/17/18 02/18/18 21:28 23:53 05:18 Troponin I 0.08 H* 0.27 H* 0.31 H* Diagnostic Imagin02/17/2018 LHC: No significant CAD, hyperdynamic LVEF 02/18/2018 echo: Mild concentric LVH, otherwise normal LV and RV size and function, definity used EKG Data: EKG 02/03/2018: NSR, normal ekg Initial EKG: NSR, V1-V3 and 1/aVL T wave inversions with qtc up to 600 ms EKG 02/18/2018: NSR, normal QtC precordial leads, leads 1 and aVL remain dysfunctional Assessment/Plan Sita Calderón is a 57 year old woman admitted with out of hospital VT/VF cardiac arrest secondary to long QT interval in the setting of severe (K 2.6, Mg 1.8) electrolyte deficiency, effexor (conditional), omeprazole (conditional) and recent flagyl d/c 3 days ago (conditional) use - Discontinue zofran (ordered) as drug contraindicated with long QT interval - Hold all other BP medications - Start nadolol 40 mg po daily (ordered) and uptitrate as tolerated - Add omeprazole and effexor to allergy list - Add thiazide diuretic (hypokalemia) to allergy list - Replace K to 4.0 or greater and Mg to 2.0 or greater - Patient needs vice president media relations approval for any new medications and/or can use [email or web address] as a reference. This was also discussed with patient and family members at bedside. Discussed with EP, Dr. Landeros at [facility] by phone and reviewed EKG's. Will continue to monitor daily EKG's. If residual T wave/QT abnormalities in 1, aVL and inferior leads do not resolve 48-72 hours post-cardiac arrest and electrolyte replacement, will arrange for a secondary prevention ICD. If EKG entirely normalizes, tentative plan is for a lifevest placement and outpatient EP evaluation for genetic testing Thank you for allowing me to participate in the cardiovascular care of this patient. Please do not hesitate to contact me with questions or concerns.
--- NOTE | 2018-02-18 10:10 | ECHO ---
Patient: [facility] Rec#: [id number] : 1960 Date: 02/18/2018 Age: 57y Height: 170 cm / 66.9 in Weight: 127.01 kg / 279.9 lbs Sex: F BSA: 2.33 Room#: [facility] Admit Date#: 02/17/2018 Type: Inpatient Referring: Milind Garduno MD Reading: Joo Dalal DO Activity Director: [facility] Tran[facility] Echocardiogram Indication: Cardiac Arrest. BP: 107/67 HR: 70 Rhythm: NSR Findings History: Hypokalemia, Crohn's, systolic murmur, HTN, MO. Technical Comments: The study is technically limited due to patient body habitus. Completed at 0845. Left Ventricle: The left ventricular chamber size is normal. Mild concentric left ventricular hypertrophy is observed. Global left ventricular wall motion and contractility are within normal limits. There is normal left ventricular systolic function. The estimated ejection fraction is 55-60%. Abnormal left ventricular diastolic function is observed. Left Atrium: The left atrial chamber size is normal. Right Ventricle: The right ventricular chamber size and systolic function are within normal limits. Right Atrium: The right atrium is mildly dilated. Aortic Valve: The aortic valve is trileaflet. The aortic valve leaflets are mildly thickened. There is no evidence of aortic regurgitation. There is no evidence of aortic stenosis. Mitral Valve: There is a trace of mitral regurgitation. There is no evidence of mitral stenosis. Tricuspid Valve: The tricuspid valve leaflets are normal. There is trace tricuspid regurgitation. Unable to estimate the right ventricular systolic pressure. There is no tricuspid stenosis. Pulmonic Valve: The pulmonic valve appears normal. There is a trace pulmonic regurgitation. There is no pulmonic stenosis. Pericardium: There is no significant pericardial effusion. Aorta: There is mild dilatation of the ascending aorta. There is no dilatation of the aortic arch. The aortic root is normal in size. Pulmonary Artery: The main pulmonary artery appears normal. Venous: The inferior vena cava is dilated. There is an approximate 50% respiratory change in the inferior vena cava dimension. Conclusions The left ventricular chamber size is normal. Mild concentric left ventricular hypertrophy is observed. There is normal left ventricular systolic function. The estimated ejection fraction is 55-60%. Global left ventricular wall motion and contractility are within normal limits. Normal LA size Normal RV size and function No significant valvular abnormalities noted Definity used to enhance imaging None prior for comparison at time of interpretation Measurements Name Value Normal Range RVIDd (AP) 2D 3.5 cm (0.9 - 2.6) RVDdMajor (2D) 4.4 cm (2.2 - 4.4) RAd ISD 4CH 5.1 cm (3.4 - 4.9) RA (A4C)W 4.2 cm (2.9 - 4.6) IVSd (2D) 1.1 cm (0.6 - 1) LVPWd (2D) 1.1 cm (0.6 - 1) LVIDd (2D) 4 cm (3.6 - 5.4) LVIDs (2D) 3.6 cm - LV FS (2D) 11 % (25 - 45) Aortic Annulus 2.2 cm (1.4 - 2.6) Ao root diameter (2D) 3.5 cm (2.1 - 3.5) Ascending Ao 3.6 cm (2.1 - 3.4) Aortic arch 2.3 cm (1.8 - 3.4) LA dimension (AP) 2D 3.6 cm (2.3 - 3.8) LAd ISD 4CH 4.7 cm (2.9 - 5.3) LA ISD 4CH W 4.1 cm (2.5 - 4.5) Name Value Normal Range LA ESV BP (A/L) index 19 ml/m2 - Name Value Normal Range MV E-wave Vmax 0.6 m/sec - MV deceleration time 197 msec - MV A-wave Vmax 0.8 m/sec - MV E:A ratio 0.8 ratio - LV septal e' Vmax 0.08 m/sec - LV lateral e' Vmax 0.09 m/sec - LV E:e' septal ratio 7.5 ratio - LV E:e' lateral ratio 6.67 ratio - Name Value Normal Range AV Vmax 1.4 m/sec - AV VTI 23.7 cm - AV peak gradient 8 mmHg - AV mean gradient 5 mmHg - LVOT Vmax 0.9 m/sec - LVOT VTI 15.3 cm - LVOT peak gradient 3 mmHg - LVOT mean gradient 1 mmHg - ALFREDO Vmax 1.2 m/sec - Name Value Normal Range IVC diameter 2.5 cm - Name Value Normal Range PV Vmax 1 m/sec - PV peak gradient 4 mmHg -
[2018-02-18] MEDS: Insulin LISPRO* 1 UNITS UNIT SUBCUT SCH ×3 (10:20→22:02)
[2018-02-18] MEDS: Nadolol TAB* 40 MG PO SCH (10:21)
[2018-02-18] MEDS ORDERED: Magnesium Sulfate 1 GM IV* 1 GM/100 ML BAG IV ONE (10:58)
[2018-02-18] MEDS ORDERED: Ketorolac INJ* 15 MG/ML 1 ML VIAL IV PUSH ONE (12:58)
[2018-02-19] MEDS: Morphine VIAL* 4 MG/ML VIAL (1 ml vial) IV PRN (02:26)
[2018-02-19] MEDS: Heparin VIAL(*) 5000 UNITS/ML VIAL (FIVE THOUSAND) SUBCUT SCH ×3 (06:48→20:42)
[2018-02-19 06:54] LABS: ABS Basophils 0.1 10^3/ul (0-0.2); ABS Eosinophils 0.1 10^3/ul (0-0.6); ABS Lymphocytes 1.6 10^3/ul (1.0-4.8); ABS Monocytes 0.3 10^3/ul (0-0.8); ABS Neutrophils 3.2 10^3/ul (1.5-7.7); ABS Nucleated RBC 0 10^3/ul; Eosinophil % 1.3 % (0-6); Hematocrit 33 % (35-47); Hemoglobin 10.8 g/dl (12.0-16.0); Lymphocyte % 30.3 % (25-47); Mean Corpuscular HGB Conc 33 g/dl (31-36); Mean Corpuscular Hemoglobin 25 pg (27-31); Mean Corpuscular Volume 76 fL (80-97); Mean Platelet Volume 7.2 um3 (7.4-10.4); Nucleated Red Blood Cells % 0.1; Platelet Count 203 10^3/ul (150-450); Red Blood Count 4.33 10^6/ul (4.00-5.40); Red Cell Distribution Width 22 % (10.5-15); White Blood Count 5.4 10^3/ul (3.5-10.8)
[2018-02-19 08:10] LABS: EGFR Non-African American 107.9 (>60)
[2018-02-19] MEDS: Insulin LISPRO* 1 UNITS UNIT SUBCUT SCH ×3 (09:05→18:06)
[2018-02-19] MEDS: Mercaptopurine TAB* 50 MG PO SCH (09:47)
[2018-02-19] MEDS: Nadolol TAB* 40 MG PO SCH (09:47)
[2018-02-19] MEDS ORDERED: oxyCODONE/Acetamin 5/325 MG* TAB PO PRN (14:34)
--- NOTE | 2018-02-19 14:47 | PN ---
Subjective Date of Service: 02/19/18 Interval History: Seen with partner at bedside Main complaint is pain in sternum especially when coughing Would like avoid morphine if possible Objective Active Medications: Acetaminophen (Tylenol Tab*) 650 mg PO Q4H PRN PRN Reason: FEVER/PAIN Last Admin: 02/18/18 13:16 Dose: 650 mg Al Hydrox/Mg Hydrox/Simethicone (Maalox Plus*) 30 ml PO Q6H PRN PRN Reason: INDIGESTION Dextrose (D50w Syringe 50 Ml*) 12.5 gm IV PUSH .FOR FS < 60 - SS PRN PRN Reason: FS < 60 Docusate Sodium (Colace Cap*) 100 mg PO BID PRN PRN Reason: CONSTIPATION Heparin Sodium (Porcine) (Heparin Vial(*)) 5,000 units SUBCUT Q8HR [facility] Last Admin: 02/19/18 13:33 Dose: Not Given Ibuprofen (Motrin Tab*) 600 mg PO Q8H [facility] Stop: 02/23/18 07:01 Insulin Human Lispro (Humalog*) 0 units SUBCUT [facility]; Protocol Last Admin: 02/19/18 13:27 Dose: Not Given Mercaptopurine (Purinethol Tab*) 50 mg PO DAILY [facility] Last Admin: 02/19/18 09:47 Dose: 50 mg Morphine Sulfate (Morphine Vial*) 2 mg IV Q4H PRN PRN Reason: PAIN - MILD Last Admin: 02/19/18 02:26 Dose: 2 mg Nadolol (Corgard Tab*) 40 mg PO DAILY [facility] Last Admin: 02/19/18 09:47 Dose: 40 mg Oxycodone/Acetaminophen (Percocet 5/325 Tab*) 1 tab PO Q6H PRN PRN Reason: PAIN Senna (Senokot Tab*) 1 tab PO BID PRN PRN Reason: CONSTIPATION Vital Signs - 8 hr 02/19/18 02/19/18 08:00 09:46 Temperature 97.8 F Pulse Rate 70 Respiratory 20 20 Rate Blood Pressure 126/72 (mmHg) O2 Sat by Pulse 100 Oximetry Oxygen Devices in Use Now: None Appearance: Well appearing, NAD Eyes: No Scleral Icterus, PERRLA Ears/Nose/Mouth/Throat: Clear Oropharnyx, Mucous Membranes Moist Neck: NL Appearance and Movements; NL JVP, Trachea Midline Respiratory: Symmetrical Chest Expansion and Respiratory Effort, Clear to Auscultation Cardiovascular: RRR Abdominal: NL Sounds; No Tenderness; No Distention, No Hepatosplenomegaly Lymphatic: No Cervical Adenopathy Neurological: Alert and Oriented x 3 Result Diagrams: 02/19/18 06:34 02/19/18 06:34 Microbiology and Other Data: Microbiology 02/17/18 23:20 Nasal Screen MRSA (PCR) - Final Nasal Mrsa Not Detected Assess/Plan/Problems-Billing Assessment: 57 yo F h/o crohns s/p out of hospital cardiac arrest thought possible VF/VT in setting of prolonged QTc - Patient Problems (1) Cardiac arrest Comment: Appreciate cardiology direction. Following EKGs daily which will guide decision for lifevest at discharge Maintain K>4 and Mg >2 No new meds without checking QTc effects Nadolol 40mg (2) Crohns disease Comment: stable (3) Hypertension Comment: nadolol HCTZ now listed as allergy due to hypokalemia (4) Pain Comment: 2/2 chest compressions add motrin standing x 4 days percocet PRN (5) DVT prophylaxis Comment: HSQ
--- NOTE | 2018-02-19 15:05 | PN ---
Subjective Date of Service: 02/19/18 Interval History: f/u VT/VF out of hospital cardiac arrest neurologically intact has costal pain from cpr no wrist or hand pain electrolytes this AM normal AM EKG continues to improve, has not normalized tele: no arrhythmia Medications Active Medications: Acetaminophen (Tylenol Tab*) 650 mg PO Q4H PRN PRN Reason: FEVER/PAIN Last Admin: 02/18/18 13:16 Dose: 650 mg Al Hydrox/Mg Hydrox/Simethicone (Maalox Plus*) 30 ml PO Q6H PRN PRN Reason: INDIGESTION Dextrose (D50w Syringe 50 Ml*) 12.5 gm IV PUSH .FOR FS < 60 - SS PRN PRN Reason: FS < 60 Docusate Sodium (Colace Cap*) 100 mg PO BID PRN PRN Reason: CONSTIPATION Heparin Sodium (Porcine) (Heparin Vial(*)) 5,000 units SUBCUT Q8HR [facility] Last Admin: 02/19/18 13:33 Dose: Not Given Ibuprofen (Motrin Tab*) 600 mg PO Q8H [facility] Stop: 02/23/18 07:01 Insulin Human Lispro (Humalog*) 0 units SUBCUT [facility]; Protocol Last Admin: 02/19/18 13:27 Dose: Not Given Mercaptopurine (Purinethol Tab*) 50 mg PO DAILY [facility] Last Admin: 02/19/18 09:47 Dose: 50 mg Morphine Sulfate (Morphine Vial*) 2 mg IV Q4H PRN PRN Reason: PAIN - MILD Last Admin: 02/19/18 02:26 Dose: 2 mg Nadolol (Corgard Tab*) 80 mg PO DAILY [facility] Oxycodone/Acetaminophen (Percocet 5/325 Tab*) 1 tab PO Q6H PRN PRN Reason: PAIN Senna (Senokot Tab*) 1 tab PO BID PRN PRN Reason: CONSTIPATION Objective Vital Signs: Temp Pulse Resp BP Pulse Ox 97.8 F 70 20 126/72 100 02/19/18 09:46 02/19/18 09:46 02/19/18 09:46 02/19/18 09:46 02/19/18 09:46 Oxygen Devices in Use Now: None Appearance: nad, pleasant Ears/Nose/Mouth/Throat: Clear Oropharnyx Neck: NL Appearance and Movements; NL JVP, Trachea Midline Respiratory: Symmetrical Chest Expansion and Respiratory Effort, Clear to Auscultation Cardiovascular: NL Sounds; No Murmurs; No JVD, RRR, No Edema Abdominal: NL Sounds; No Tenderness; No Distention Extremities: No Edema, - - right radial cath site intact no pain, distal radial pulse not well felt, adequate perfusion with poor capillary refill delayed filling both devin/reverse devin Skin: No Rash or Ulcers Neurological: Alert and Oriented x 3, - - sore ribs Laboratory Results: 02/19/18 06:34 02/19/18 06:34 INR (Anticoag Therapy) 1.03 (0.77-1.02) H 02/17/18 21:28 APTT 28.0 seconds (26.0-36.3) 02/17/18 21:28 Total Bilirubin 0.90 mg/dL (0.2-1.0) 02/17/18 21:28 AST 41 U/L (13-39) H 02/17/18 21:28 ALT 59 U/L (7-52) H 02/17/18 21:28 Alkaline Phosphatase 57 U/L (34-104) 02/17/18 21:28 CK-MB (CK-2) 6.6 ng/mL (0.6-6.3) H 02/17/18 21:28 B-Natriuretic Peptide 123 pg/mL (-100) H 02/17/18 21:28 Total Protein 6.0 g/dL (6.4-8.9) L 02/17/18 21:28 Albumin 3.6 g/dL (3.2-5.2) 02/17/18 21:28 Globulin 2.4 g/dL (2-4) 02/17/18 21:28 Albumin/Globulin Ratio 1.5 (1-3) 02/17/18 21:28 Triglycerides 202 mg/dL 02/18/18 05:18 Cholesterol 164 mg/dL 02/18/18 05:18 LDL Cholesterol 97 mg/dL 02/18/18 05:18 HDL Cholesterol 26.9 mg/dL 02/18/18 05:18 TSH 4.72 mcIU/mL (0.34-5.60) 02/17/18 21:28 AM mag 2.0 02/17/18 02/17/18 02/18/18 21:28 23:53 05:18 Troponin I 0.08 H* 0.27 H* 0.31 H* 02/18/18 12:05 Troponin I 0.23 H* Diagnostic Imagin02/17/2018 LHC: No significant CAD, hyperdynamic LVEF 02/18/2018 echo: Mild concentric LVH, otherwise normal LV and RV size and function, definity used EKG Data: EKG 02/03/2018: NSR, normal ekg Initial EKG: NSR, V1-V3 and 1/aVL T wave inversions with qtc up to 600 ms EKG 02/18/2018: NSR, normal QtC precordial leads, leads 1 and aVL remain dysfunctional Assessment/Plan Sita Calderón is a 57 year old woman admitted with out of hospital VT/VF cardiac arrest s/p bystander CPR/succesful AED resuscitation neurologically intact secondary to long QT interval in the setting of severe (K 2.6, Mg 1.8) electrolyte deficiency, effexor (conditional), omeprazole (conditional) and recent flagyl d/c 3 days ago (conditional) use - Increase nadolol from 40 mg to 80 po daily (ordered) - Would add flagyl, omeprazole and effexor to allergy list - Add thiazide diuretic (hypokalemia) to allergy list - Replace K to 4.0 or greater and Mg to 2.0 or greater - Patient needs group home manager approval for any new medications and/or can use [email or web address] as a reference. This was also discussed with patient and family members at bedside. - Repeat BMP, Mg tomorrow AM - Check tomorrow AM EKG (ordered), see original consult note for details Thank you for allowing me to participate in the cardiovascular care of this patient. Please do not hesitate to contact me with questions or concerns.
[2018-02-19] MEDS: Ibuprofen TAB* 600 MG PO SCH ×2 (16:13→23:01)
--- NOTE | 2018-02-19 21:33 | CATH ---
CATH REPORT: DATE OF CATH: 02/17/18 PROCEDURE: Right radial artery access, bilateral selective coronary cineangiography, left heart cath eterization, and left ventriculography. HISTORY: A 57-year-old woman with Crohn's disease with witnessed in the field arrest with shockable rhythm by AED x3, resuscitated. In the ER, she had marked QTc prolongation, T-wave inversion in the inferolateral leads, and chest pain. It was impossible to determine whether she was experiencing car diac pain in addition to CPR-induced chest pain. She underwent emergent catheterization to rule out an ischemic etiology. PROCEDURE ACCESS: Right radial artery. SHEATH: 6F Slender. MEDICATIONS: 1. Subcu lidocaine. 2. IV Versed. 3. IV fentanyl. 4. Heparin 3000 units. DIAGNOSTIC CATHETER: 5F TIG4, 5F pigtail. HEMODYNAMICS: Initial AO 79/36 post radial cocktail, LV 105/10-23, no aortic valve gradient on pullb ack. ANGIOGRAPHY: RCA. The RCA is large, dominant, the PDA is large, rises as an acute marginal branch. There are several smaller posterolateral branches. The RCA has no significant stenosis, does have mi ld irregularity. Left main. The left main is normal in size, has no stenosis. LAD. The LAD is moderate, ends at the apex, it supplies a moderate mid diagonal, the LAD has no sten osis, has mild irregularity. Circumflex. The circumflex is not dominant, is moderate, supplies a single moderate marginal branch, has no significant stenosis. LV gram. Papillary muscles are prominent with near mid cavity obliteration, estimated LVEF in excess of 60% post PVC, there was no evidence of mitral regurgitation. CONCLUSION: 1. No significant obstructive coronary disease. 2. Normal LV systolic function with near cavity obliteration raising the possibility of hypertrophic obstructive cardiomyopathy, subsequently not confirmed by echo. 3. Elevated LVEDP, otherwise normal left-sided hemodynamics post resuscitation. 4. Successful right radial artery access. 5. ACS etiology for her cardiac arrest has been ruled out. [id number]/[facility] #: [id number]
[2018-02-20 05:35] LABS: ABS Basophils 0 10^3/ul (0-0.2); ABS Eosinophils 0.1 10^3/ul (0-0.6); ABS Lymphocytes 1.3 10^3/ul (1.0-4.8); ABS Monocytes 0.2 10^3/ul (0-0.8); ABS Neutrophils 1.8 10^3/ul (1.5-7.7); ABS Nucleated RBC 0 10^3/ul; Eosinophil % 2.6 % (0-6); Hematocrit 33 % (35-47); Hemoglobin 10.4 g/dl (12.0-16.0); Lymphocyte % 37.2 % (25-47); Mean Corpuscular HGB Conc 32 g/dl (31-36); Mean Corpuscular Hemoglobin 25 pg (27-31); Mean Corpuscular Volume 78 fL (80-97); Mean Platelet Volume 6.9 um3 (7.4-10.4); Nucleated Red Blood Cells % 0.2; Platelet Count 173 10^3/ul (150-450); Red Blood Count 4.19 10^6/ul (4.00-5.40); Red Cell Distribution Width 21 % (10.5-15); White Blood Count 3.5 10^3/ul (3.5-10.8)
[2018-02-20] MEDS: Heparin VIAL(*) 5000 UNITS/ML VIAL (FIVE THOUSAND) SUBCUT SCH ×3 (05:44→21:10)
[2018-02-20 06:00] LABS: EGFR Non-African American 86.9 (>60)
[2018-02-20] MEDS: Ibuprofen TAB* 600 MG PO SCH ×3 (06:32→22:23)
[2018-02-20] MEDS ORDERED: Magnesium Sulfate IV* 2 GM in NS 0.9% 100 ML* 100 ML IVPB ONE (09:00)
[2018-02-20] MEDS: Insulin LISPRO* 1 UNITS UNIT SUBCUT SCH ×3 (09:20→18:01)
[2018-02-20] MEDS: Magnesium Oxide TAB* 400 MG PO SCH (09:21)
[2018-02-20] MEDS: Nadolol TAB* 40 MG PO SCH (09:22)
[2018-02-20] MEDS: Mercaptopurine TAB* 50 MG PO SCH (09:22)
--- NOTE | 2018-02-20 15:25 | PN ---
Subjective Date of Service: 02/20/18 Interval History: Pain in sternum is much improved with standing motrin No complaints. She is still weighing options and considering whether to proceed with ICD. Objective Active Medications: Acetaminophen (Tylenol Tab*) 650 mg PO Q4H PRN PRN Reason: FEVER/PAIN Last Admin: 02/18/18 13:16 Dose: 650 mg Al Hydrox/Mg Hydrox/Simethicone (Maalox Plus*) 30 ml PO Q6H PRN PRN Reason: INDIGESTION Dextrose (D50w Syringe 50 Ml*) 12.5 gm IV PUSH .FOR FS < 60 - SS PRN PRN Reason: FS < 60 Docusate Sodium (Colace Cap*) 100 mg PO BID PRN PRN Reason: CONSTIPATION Heparin Sodium (Porcine) (Heparin Vial(*)) 5,000 units SUBCUT Q8HR [facility] Last Admin: 02/20/18 13:03 Dose: Not Given Ibuprofen (Motrin Tab*) 600 mg PO Q8H [facility] Stop: 02/23/18 07:01 Last Admin: 02/20/18 14:13 Dose: 600 mg Insulin Human Lispro (Humalog*) 0 units SUBCUT [facility]; Protocol Last Admin: 02/20/18 13:00 Dose: 1 units Magnesium Oxide (Magox 400 Tab*) 800 mg PO DAILY [facility] Last Admin: 02/20/18 09:21 Dose: 800 mg Mercaptopurine (Purinethol Tab*) 50 mg PO DAILY [facility] Last Admin: 02/20/18 09:22 Dose: 50 mg Morphine Sulfate (Morphine Vial*) 2 mg IV Q4H PRN PRN Reason: PAIN - MILD Last Admin: 02/19/18 02:26 Dose: 2 mg Nadolol (Corgard Tab*) 80 mg PO DAILY [facility] Last Admin: 02/20/18 09:22 Dose: 80 mg Oxycodone/Acetaminophen (Percocet 5/325 Tab*) 1 tab PO Q6H PRN PRN Reason: PAIN Senna (Senokot Tab*) 1 tab PO BID PRN PRN Reason: CONSTIPATION Vital Signs - 8 hr 02/20/18 02/20/18 02/20/18 08:00 09:13 09:21 Temperature 97.9 F Pulse Rate 71 71 Respiratory 20 16 Rate Blood Pressure 145/71 140/74 (mmHg) O2 Sat by Pulse 100 100 Oximetry 10/06/18 10/06/18 09:22 11:21 Temperature 96.1 F Pulse Rate 64 Respiratory 16 Rate Blood Pressure 140/74 136/74 (mmHg) O2 Sat by Pulse 100 Oximetry Oxygen Devices in Use Now: None Appearance: NAD Eyes: No Scleral Icterus Ears/Nose/Mouth/Throat: NL Teeth, Lips, Gums, Clear Oropharnyx Neck: NL Appearance and Movements; NL JVP, Trachea Midline Respiratory: Symmetrical Chest Expansion and Respiratory Effort, Clear to Auscultation Cardiovascular: RRR Abdominal: NL Sounds; No Tenderness; No Distention, No Hepatosplenomegaly Lymphatic: No Cervical Adenopathy Extremities: No Edema Skin: No Rash or Ulcers Neurological: Alert and Oriented x 3 Result Diagrams: 02/20/18 05:16 02/20/18 05:16 Microbiology and Other Data: Microbiology 02/17/18 23:20 Nasal Screen MRSA (PCR) - Final Nasal Mrsa Not Detected Assess/Plan/Problems-Billing Assessment: 57 yo F h/o crohns s/p out of hospital cardiac arrest 2/2 vfib arrest ( confirmed on EMS strips) in setting of electrolyte abnormalities, medications and prolonged QTc - Patient Problems (1) Cardiac arrest Comment: Appreciate cardiology direction. Decision to proceed with ICD up to pt. Pt meetings with family today. Maintain K>4 and Mg >2 No new meds without checking QTc effects Nadolol increased to 80mg Mg daily (2) Crohns disease Comment: stable (3) Hypertension Comment: nadolol HCTZ now listed as allergy due to hypokalemia (4) Pain Comment: 2/2 chest compressions motrin standing x 4 days (d2/4) percocet PRN (5) DVT prophylaxis Comment: HSQ
[2018-02-21] MEDS: Heparin VIAL(*) 5000 UNITS/ML VIAL (FIVE THOUSAND) SUBCUT SCH ×2 (04:43→13:27)
[2018-02-21] MEDS: Ibuprofen TAB* 600 MG PO SCH ×3 (06:17→22:05)
[2018-02-21 06:19] LABS: EGFR Non-African American 94.6 (>60)
[2018-02-21] MEDS: Insulin LISPRO* 1 UNITS UNIT SUBCUT SCH ×3 (09:06→17:21)
[2018-02-21] MEDS: Mercaptopurine TAB* 50 MG PO SCH (09:07)
[2018-02-21] MEDS: Nadolol TAB* 40 MG PO SCH (09:07)
[2018-02-21] MEDS: Magnesium Oxide TAB* 400 MG PO SCH (09:09)
--- NOTE | 2018-02-21 10:27 | PN ---
Subjective Date of Service: 02/21/18 Interval History: f/u PMVT/torsades cardiac arrest due to long QT Patients musculoskeletal CP post-CPR pain improved no dyspnea tele: no arrhythmia Medications Active Medications: Acetaminophen (Tylenol Tab*) 650 mg PO Q4H PRN PRN Reason: FEVER/PAIN Last Admin: 02/18/18 13:16 Dose: 650 mg Al Hydrox/Mg Hydrox/Simethicone (Maalox Plus*) 30 ml PO Q6H PRN PRN Reason: INDIGESTION Dextrose (D50w Syringe 50 Ml*) 12.5 gm IV PUSH .FOR FS < 60 - SS PRN PRN Reason: FS < 60 Docusate Sodium (Colace Cap*) 100 mg PO BID PRN PRN Reason: CONSTIPATION Heparin Sodium (Porcine) (Heparin Vial(*)) 5,000 units SUBCUT Q8HR [facility] Stop: 02/21/18 20:00 Last Admin: 02/21/18 04:43 Dose: Not Given Sodium Chloride (Ns 0.9% 1000 Ml*) 1,000 mls @ 75 mls/hr IV PER RATE [facility] Ibuprofen (Motrin Tab*) 600 mg PO Q8H [facility] Stop: 02/23/18 07:01 Last Admin: 02/21/18 06:17 Dose: 600 mg Insulin Human Lispro (Humalog*) 0 units SUBCUT [facility]; Protocol Last Admin: 02/21/18 09:06 Dose: 2 units Magnesium Oxide (Magox 400 Tab*) 800 mg PO DAILY [facility] Last Admin: 02/21/18 09:09 Dose: 800 mg Mercaptopurine (Purinethol Tab*) 50 mg PO DAILY [facility] Last Admin: 02/21/18 09:07 Dose: 50 mg Morphine Sulfate (Morphine Vial*) 2 mg IV Q4H PRN PRN Reason: PAIN - MILD Last Admin: 02/19/18 02:26 Dose: 2 mg Nadolol (Corgard Tab*) 80 mg PO DAILY [facility] Last Admin: 02/21/18 09:07 Dose: 80 mg Oxycodone/Acetaminophen (Percocet 5/325 Tab*) 1 tab PO Q6H PRN PRN Reason: PAIN Senna (Senokot Tab*) 1 tab PO BID PRN PRN Reason: CONSTIPATION Objective Vital Signs: Temp Pulse Resp BP Pulse Ox 98.1 F 63 16 128/74 100 02/21/18 07:47 02/21/18 07:47 02/21/18 07:47 02/21/18 07:47 02/21/18 07:47 Oxygen Devices in Use Now: None Appearance: nad, pleasant Ears/Nose/Mouth/Throat: Clear Oropharnyx Neck: NL Appearance and Movements; NL JVP, Trachea Midline Respiratory: Symmetrical Chest Expansion and Respiratory Effort, Clear to Auscultation Cardiovascular: NL Sounds; No Murmurs; No JVD, RRR, No Edema Abdominal: NL Sounds; No Tenderness; No Distention Extremities: No Edema, - Skin: No Rash or Ulcers Neurological: Alert and Oriented x 3, - - sore ribs Laboratory Results: 02/20/18 05:16 02/21/18 05:54 INR (Anticoag Therapy) 1.03 (0.77-1.02) H 02/17/18 21:28 APTT 28.0 seconds (26.0-36.3) 02/17/18 21:28 Total Bilirubin 0.90 mg/dL (0.2-1.0) 02/17/18 21:28 AST 41 U/L (13-39) H 02/17/18 21:28 ALT 59 U/L (7-52) H 02/17/18 21:28 Alkaline Phosphatase 57 U/L (34-104) 02/17/18 21:28 CK-MB (CK-2) 6.6 ng/mL (0.6-6.3) H 02/17/18 21:28 B-Natriuretic Peptide 123 pg/mL (-100) H 02/17/18 21:28 Total Protein 6.0 g/dL (6.4-8.9) L 02/17/18 21:28 Albumin 3.6 g/dL (3.2-5.2) 02/17/18 21:28 Globulin 2.4 g/dL (2-4) 02/17/18 21:28 Albumin/Globulin Ratio 1.5 (1-3) 02/17/18 21:28 Triglycerides 202 mg/dL 02/18/18 05:18 Cholesterol 164 mg/dL 02/18/18 05:18 LDL Cholesterol 97 mg/dL 02/18/18 05:18 HDL Cholesterol 26.9 mg/dL 02/18/18 05:18 TSH 4.72 mcIU/mL (0.34-5.60) 02/17/18 21:28 mg today 2.0 02/17/18 02/17/18 02/18/18 21:28 23:53 05:18 Troponin I 0.08 H* 0.27 H* 0.31 H* 02/18/18 12:05 Troponin I 0.23 H* Diagnostic Imagin02/17/2018 LHC: No significant CAD, hyperdynamic LVEF 02/18/2018 echo: Mild concentric LVH, otherwise normal LV and RV size and function, definity used EKG Data: EKG 02/03/2018: NSR, normal ekg Initial EKG: NSR, V1-V3 and 1/aVL T wave inversions with qtc up to 600 ms EKG 02/18/2018: NSR, normal QtC precordial leads, leads 1 and aVL remain dysfunctional ekg today: NSR, normal Qtc, isolated TWI 1 and aVL Assessment/Plan Sita Calderón is a 57 year old woman admitted with out of hospital cardiac arrest secondary to torsades/PMVT s/p bystander CPR/succesful AED resuscitation neurologically intact secondary to long QT interval in the setting of severe (K 2.6, Mg 1.8) electrolyte deficiency, effexor (conditional), omeprazole ( conditional) and recent flagyl d/c 3 days prior (conditional) and symbicort ( drug to avoid). QT interval has normalized. - Continue nadolol 80 po daily - Patient to discontinue and avoid any QT prolonging medications - Add thiazide diuretic (hypokalemia) to allergy list - Replace K to 4.0 or greater and Mg to 2.0 or greater - Continue magnesium oral 800 mg po daily - Patient needs liquor establishment manager approval for any new medications and/or can use [email or web address] as a reference. This was also discussed with patient and family members at bedside. I have had multiple, prolonged conversations with patient and family members throughout the course of her hospitalization. They have also done independent investigation on their own regarding her episode. In summary, it is uncertain at this point if her arrest was QT prolongation acquired only vs. acquired + congenital and she has not had genetic testing. Particularly if congenital long QT could be excluded, her risk of recurrent events would be very low with electrolyte replacement, avoiding offending medications and nadolol use. She also understands that an unlikely recurrent event could be life threatening ( such as with electrolyte depletion during a severe crohn's flare - a difficult to reverse condition). We discussed the risks and benefits of the following options which I think are all reasonable. With shared decision making and patient preference in an uncertain situation, she has chose option 3 for secondary prevention of cardiac arrest which will be arranged for tomorrow with Dr. Bowie (hold sq heparin after tongiht, npo, start ivf - all ordered) 1. No lifevest or ICD 2. Lifevest and formal EP consult as an outpatient for genetic testing 3. ICD placement Thank you for allowing me to participate in the cardiovascular care of this patient. Please do not hesitate to contact me with questions or concerns.
--- NOTE | 2018-02-21 16:02 | PN ---
Subjective Date of Service: 02/21/18 Interval History: Pain in chest much better after several days NSAIDs OOB and ambulating tele- no events Objective Active Medications: Acetaminophen (Tylenol Tab*) 650 mg PO Q4H PRN PRN Reason: FEVER/PAIN Last Admin: 02/18/18 13:16 Dose: 650 mg Al Hydrox/Mg Hydrox/Simethicone (Maalox Plus*) 30 ml PO Q6H PRN PRN Reason: INDIGESTION Dextrose (D50w Syringe 50 Ml*) 12.5 gm IV PUSH .FOR FS < 60 - SS PRN PRN Reason: FS < 60 Docusate Sodium (Colace Cap*) 100 mg PO BID PRN PRN Reason: CONSTIPATION Heparin Sodium (Porcine) (Heparin Vial(*)) 5,000 units SUBCUT Q8HR [facility] Stop: 02/21/18 20:00 Last Admin: 02/21/18 13:27 Dose: Not Given Sodium Chloride (Ns 0.9% 1000 Ml*) 1,000 mls @ 75 mls/hr IV PER RATE [facility] Ibuprofen (Motrin Tab*) 600 mg PO Q8H [facility] Stop: 02/23/18 07:01 Last Admin: 02/21/18 15:15 Dose: 600 mg Insulin Human Lispro (Humalog*) 0 units SUBCUT [facility]; Protocol Last Admin: 02/21/18 12:44 Dose: 3 units Magnesium Oxide (Magox 400 Tab*) 800 mg PO DAILY [facility] Last Admin: 02/21/18 09:09 Dose: 800 mg Mercaptopurine (Purinethol Tab*) 50 mg PO DAILY [facility] Last Admin: 02/21/18 09:07 Dose: 50 mg Morphine Sulfate (Morphine Vial*) 2 mg IV Q4H PRN PRN Reason: PAIN - MILD Last Admin: 02/19/18 02:26 Dose: 2 mg Nadolol (Corgard Tab*) 80 mg PO DAILY [facility] Last Admin: 02/21/18 09:07 Dose: 80 mg Oxycodone/Acetaminophen (Percocet 5/325 Tab*) 1 tab PO Q6H PRN PRN Reason: PAIN Senna (Senokot Tab*) 1 tab PO BID PRN PRN Reason: CONSTIPATION Vital Signs - 8 hr 02/21/18 11:18 Temperature 97.4 F Pulse Rate 59 Respiratory 16 Rate Blood Pressure 122/73 (mmHg) O2 Sat by Pulse 100 Oximetry Oxygen Devices in Use Now: None Appearance: NAD Eyes: No Scleral Icterus, PERRLA Ears/Nose/Mouth/Throat: Clear Oropharnyx, Mucous Membranes Moist Neck: NL Appearance and Movements; NL JVP, Trachea Midline Respiratory: Symmetrical Chest Expansion and Respiratory Effort, Clear to Auscultation Cardiovascular: RRR Abdominal: NL Sounds; No Tenderness; No Distention, No Hepatosplenomegaly Lymphatic: No Cervical Adenopathy Extremities: No Edema Neurological: Alert and Oriented x 3 Result Diagrams: 02/20/18 05:16 02/21/18 05:54 Microbiology and Other Data: Microbiology 02/17/18 23:20 Nasal Screen MRSA (PCR) - Final Nasal Mrsa Not Detected Assess/Plan/Problems-Billing Assessment: 57 yo F h/o crohns s/p out of hospital cardiac arrest 2/2 vfib arrest ( confirmed on EMS strips) in setting of electrolyte abnormalities, medications and prolonged QTc - Patient Problems (1) Cardiac arrest Comment: Appreciate cardiology direction. ICD placement tomorrow with Dr. Bowie Maintain K>4 and Mg >2 No new meds without checking QTc effects Nadolol increased to 80mg Mg daily (2) Crohns disease Comment: stable (3) Hypertension Comment: nadolol HCTZ now listed as allergy due to hypokalemia (4) Pain Comment: 2/2 chest compressions motrin standing x 4 days (d3/4) percocet PRN (5) DVT prophylaxis Comment: HSQ
[2018-02-22] MEDS ORDERED: NS 0.9% 1000 ML* 1,000 ML IV SCH (06:00)
[2018-02-22] MEDS: Ibuprofen TAB* 600 MG PO SCH ×3 (06:15→22:00)
[2018-02-22] MEDS: Insulin LISPRO* 1 UNITS UNIT SUBCUT SCH ×3 (08:38→18:25)
[2018-02-22] MEDS: Nadolol TAB* 40 MG PO SCH (08:57)
[2018-02-22] MEDS: Mercaptopurine TAB* 50 MG PO SCH (08:57)
[2018-02-22] MEDS: Magnesium Oxide TAB* 400 MG PO SCH (08:57)
[2018-02-22] MEDS ORDERED: Diazepam TAB(*) 5 MG PO ONE (10:00)
[2018-02-22] MEDS ORDERED: ceFAZolin VIAL 1 GM in NS *SYRINGE * * 10 ML ONE (10:30)
[2018-02-22] MEDS ORDERED: ceFAZolin 2 GM PREMIX in ORs 2 GM/50 ML BAG IVPB ONE (10:30)
[2018-02-22] MEDS ORDERED: ceFAZolin 1 GM/10 ML flush(*) SYRINGE for pocket flush (cardiology) FLUSH ONE (10:30)
[2018-02-22] MEDS ORDERED: Lidocaine 1% INJ* 10 MG/ML 30 ML SDV ONE (11:10)
[2018-02-22] MEDS ORDERED: fentaNYL* 50 MCG/ML 2 ML VIAL (100 MCG VIAL) ONE (11:13)
[2018-02-22] MEDS ORDERED: Flumazenil* 0.1 MG/ML 5 ML MDV ONE (11:13)
[2018-02-22] MEDS ORDERED: Midazolam* 1 MG/ML 10 ML VIAL (10 MG) ONE (11:13)
[2018-02-22] MEDS ORDERED: Naloxone* 0.4 MG/ML 1 ML VIAL ONE (11:13)
--- NOTE | 2018-02-22 14:11 | RAD ---
Indication: Post device implant. Comparison: February 18, 2018 CT. Technique: Upright AP 1245 hours Report: RIGHT atrial and RIGHT ventricular level pacemaker leads. Upper normal heart size. Unremarkable central pulmonary vasculature and mediastinal contours. No focal pulmonary lesion, compelling alveolar consolidation, pleural effusion, pneumothorax. IMPRESSION: #. Negative for pneumothorax or pulmonary edema post pacemaker placement.
--- NOTE | 2018-02-22 17:03 | PN ---
Subjective Date of Service: 02/22/18 Interval History: Seen after ICD placement. Up and walking around unit. Feels well. No complaints Objective Active Medications: Acetaminophen (Tylenol Tab*) 650 mg PO Q4H PRN PRN Reason: FEVER/PAIN Last Admin: 02/18/18 13:16 Dose: 650 mg Al Hydrox/Mg Hydrox/Simethicone (Maalox Plus*) 30 ml PO Q6H PRN PRN Reason: INDIGESTION Dextrose (D50w Syringe 50 Ml*) 12.5 gm IV PUSH .FOR FS < 60 - SS PRN PRN Reason: FS < 60 Docusate Sodium (Colace Cap*) 100 mg PO BID PRN PRN Reason: CONSTIPATION Sodium Chloride (Ns 0.9% 1000 Ml*) 1,000 mls @ 75 mls/hr IV PER RATE [facility] Cefazolin Sodium/Dextrose (Kefzol 1 Gm In Dextrose Duplex (*)) 1 gm in 50 mls @ 200 mls/hr IVPB Q8H [facility] Stop: 02/23/18 10:44 Ibuprofen (Motrin Tab*) 600 mg PO Q8H [facility] Stop: 02/23/18 07:01 Last Admin: 02/22/18 15:23 Dose: 600 mg Insulin Human Lispro (Humalog*) 0 units SUBCUT [facility]; Protocol Last Admin: 02/22/18 15:10 Dose: Not Given Magnesium Oxide (Magox 400 Tab*) 800 mg PO DAILY [facility] Last Admin: 02/22/18 08:57 Dose: 800 mg Mercaptopurine (Purinethol Tab*) 50 mg PO DAILY [facility] Last Admin: 02/22/18 08:57 Dose: 50 mg Morphine Sulfate (Morphine Vial*) 2 mg IV Q4H PRN PRN Reason: PAIN - MILD Last Admin: 02/19/18 02:26 Dose: 2 mg Nadolol (Corgard Tab*) 80 mg PO DAILY [facility] Last Admin: 02/22/18 08:57 Dose: 80 mg Oxycodone/Acetaminophen (Percocet 5/325 Tab*) 1 tab PO Q6H PRN PRN Reason: PAIN Senna (Senokot Tab*) 1 tab PO BID PRN PRN Reason: CONSTIPATION Vital Signs - 8 hr 02/22/18 02/22/18 02/22/18 10:31 12:40 12:55 Temperature Pulse Rate 69 69 Respiratory 18 Rate Blood Pressure 146/94 147/80 (mmHg) O2 Sat by Pulse 95 95 Oximetry 02/22/18 02/22/18 02/22/18 13:11 13:19 13:25 Temperature Pulse Rate 73 Respiratory Rate Blood Pressure 150/74 145/81 (mmHg) O2 Sat by Pulse 96 96 Oximetry 02/22/18 02/22/18 02/22/18 13:40 13:41 13:49 Temperature 97.5 F Pulse Rate 72 71 Respiratory 18 18 Rate Blood Pressure 123/77 146/94 (mmHg) O2 Sat by Pulse 95 95 97 Oximetry 02/22/18 02/22/18 02/22/18 13:55 14:00 14:10 Temperature Pulse Rate 73 79 76 Respiratory Rate Blood Pressure 135/78 131/82 (mmHg) O2 Sat by Pulse 97 98 97 Oximetry 02/22/18 02/22/18 02/22/18 14:25 14:40 14:49 Temperature Pulse Rate 77 74 Respiratory Rate Blood Pressure 117/66 126/72 (mmHg) O2 Sat by Pulse 96 96 98 Oximetry 02/22/18 02/22/18 02/22/18 14:55 15:09 15:10 Temperature 98.7 F Pulse Rate 70 73 Respiratory 16 Rate Blood Pressure 115/68 116/78 (mmHg) O2 Sat by Pulse 96 95 Oximetry 02/22/18 02/22/18 02/22/18 15:26 15:41 15:55 Temperature Pulse Rate 79 68 Respiratory Rate Blood Pressure 135/75 118/85 126/64 (mmHg) O2 Sat by Pulse 98 98 Oximetry Oxygen Devices in Use Now: None Appearance: NAD Eyes: No Scleral Icterus, PERRLA Ears/Nose/Mouth/Throat: Mucous Membranes Moist Neck: NL Appearance and Movements; NL JVP Respiratory: Symmetrical Chest Expansion and Respiratory Effort, Clear to Auscultation Cardiovascular: RRR, - - ICD covered with clean dressing Extremities: No Edema Neurological: Alert and Oriented x 3 Result Diagrams: 02/20/18 05:16 02/21/18 05:54 Microbiology and Other Data: Microbiology 02/17/18 23:20 Nasal Screen MRSA (PCR) - Final Nasal Mrsa Not Detected Assess/Plan/Problems-Billing Assessment: 57 yo F h/o crohns s/p out of hospital cardiac arrest 2/2 vfib arrest ( confirmed on EMS strips) in setting of electrolyte abnormalities, medications and prolonged QTc - Patient Problems (1) Cardiac arrest Comment: ICD placement 02/[address] Bowie Maintain K>4 and Mg >2 No new meds without checking QTc effects Nadolol at 80mg Mg daily (2) Crohns disease Comment: stable (3) Hypertension Comment: nadolol HCTZ now listed as allergy due to hypokalemia (4) Pain Comment: 2/2 chest compressions motrin standing x 4 days (d4/4) percocet PRN (5) DVT prophylaxis Comment: HSQ
[2018-02-22] MEDS: ceFAZolin 1 GM in Dextrose (*) 1 GM/50 ML BAG IVPB SCH (18:26)
[2018-02-23] MEDS: ceFAZolin 1 GM in Dextrose (*) 1 GM/50 ML BAG IVPB SCH ×2 (02:19→10:52)
[2018-02-23] MEDS: Ibuprofen TAB* 600 MG PO SCH (06:47)
[2018-02-23 06:54] LABS: EGFR Non-African American 98.1 (>60)
--- NOTE | 2018-02-23 08:29 | RAD ---
HISTORY: S/P Device Implant COMPARISONS: February 22, 2018 VIEWS: 4: Frontal dual-energy and lateral views of the chest. FINDINGS: CARDIOMEDIASTINAL SILHOUETTE: The cardiomediastinal silhouette is normal. FAYE: The faye are normal. PLEURA: The costophrenic angles are sharp. No pleural abnormalities are noted. LUNG PARENCHYMA: The lungs are clear. ABDOMEN: The upper abdomen is clear. There is no subphrenic gas. BONES AND SOFT TISSUES: No bone or soft tissue abnormalities are noted. OTHER: A left-sided dual-lead AICD pacemaker is noted.. IMPRESSION: NO ACTIVE CARDIOPULMONARY DISEASE.
[2018-02-23] MEDS: Magnesium Oxide TAB* 400 MG PO SCH (09:43)
[2018-02-23] MEDS: Insulin LISPRO* 1 UNITS UNIT SUBCUT SCH ×2 (09:44→13:23)
[2018-02-23] MEDS: Nadolol TAB* 40 MG PO SCH (09:44)
[2018-02-23] MEDS: Mercaptopurine TAB* 50 MG PO SCH (09:45)
[2018-02-23 12:13] VITALS: BP 130/71
--- NOTE | 2018-02-23 21:21 | OP ---
CC: Dr. Shakir Fonseca, [facility], [place], [place] * DATE OF OPERATION: 02/22/18 - ROOM #447 DATE OF : 64. SURGEON: Tre oBwie MD. ANESTHESIA: Local anesthesia with conscious sedation. PRE-OP DIAGNOSIS: Long QT ventricular fibrillation arrest. POST-OP DIAGNOSIS: Long QT ventricular fibrillation arrest. OPERATIVE PROCEDURE: Dual-chamber ICD implantation. ESTIMATED BLOOD LOSS: Nil. COMPLICATIONS: None. INDICATIONS: The patient is a 57-year-old female, who was at a concert and had a VF arrest. She was shocked by an AED 3 times. The strips clearly showed ventricular fibrillation with potential for torsade. Her post-shock EKG showed normal sinus rhythm with a prolonged QT interval. The patient's echocardiogram and cardiac catheterization were unremarkable. Dual-chamber pacemaker ICD was recommended. DESCRIPTION OF PROCEDURE: The patient was brought to the procedure room in a fasting state. Informed consent had been obtained prior to the procedure. All labs had been reviewed. The patient was placed supine on the procedure table. Her left deltopectoral area was cleaned and draped in the usual fashion. A 1% lidocaine was used for local anesthesia. Under ultrasound guidance, the axillary vein was entered by a modified Seldinger technique and a guidewire was placed. A second guidewire was placed under the same technique. A 4-cm incision was made in the pectoral area and blunt dissection was carried down to the pectoral fascia. A pocket was fashioned for the ICD. Over the guidewire, a 9-Romansh sheath introducer was placed, through which a right ventricular ICD lead was advanced to the RV apex. The right ventricular lead is a Medtronic model 5565X59, serial number [id number] and had an R-wave sensitivity of 6.6, impedance 460 ohms, threshold 0.6 volts at 0.5 milliseconds. The ventricular lead was sutured to the pectoral fascia. Over the second guidewire, a 7-Romansh sheath introducer was placed, through which a right atrial lead was advanced to the high right atrium. The right atrial lead is a Medtronic model 5076, serial number [id number] and had a P-wave sensitivity of 1.6, impedance 695 ohms, threshold 1.6 volts at 0.5 milliseconds. The atrial lead was sutured to the pectoral fascia. A generator was attached appropriately to the atrial and ventricular lead. The generator is a Wild[employer] model [id number], serial number [id number]. The device was placed in the pocket and surgical incision was closed in three layers. The patient tolerated the procedure well with no complications. [id number]/[facility] #: [id number] MTDD
--- NOTE | 2018-02-24 03:47 | DS ---
CC: Dr. Donnell Tucker; Dr. Chris Bales, [facility], phone #[phone]; Dr. Bowie, Cardiology Department, [place] * DISCHARGE SUMMARY: DATE OF ADMISSION: 02/17/18 DATE OF DISCHARGE: 02/23/18 PRIMARY CARE PROVIDER: Dr. Donnell Tucker in [place] from [facility] Medicine Department, phone #[phone]. DISCHARGE DIAGNOSES: 1. Ventral tachycardia/ventricular fibrillation cardiac arrest, status post resuscitation and chest compression at admission. 2. Severe hypokalemia and mild hypomagnesemia that likely led to QT prolongation at admission and then secondarily caused ventricular fibrillation arrest. SECONDARY DIAGNOSES: 1. History of Crohn's with a recent flare. 2. History of diabetes type 2. 3. History of hypokalemia. 4. Gastroesophageal reflux disease. 5. History of hypertension. MEDICATIONS AT DISCHARGE: Include: 1. Nadolol 80 mg daily. 2. Mercaptopurine 50 mg daily. 3. Mag ox 800 mg daily. 4. Prilosec 20 mg daily. 5. Metformin 500 mg daily. 6. Victoza 1.8 mg injection daily. 7. Ferrous sulfate 325 mg b.i.d. 8. Cephalexin 250 mg p.o. 3 times a day for a total of 3 days. At discharge, the patient is recommended to have basic metabolic panel drawn in approximately 3 days with reports to be sent to Dr. Tucker. The patient is going to follow up with Dr. Bowie next week unless Dr. Bowie's office arranges for the patient to see an epic willow specialist in [place] by that time. The patient is also scheduled to follow up with his hand brush filler, Dr. Chris Bales, the day after discharge, on 02/24/18. PROCEDURES DURING THE HOSPITAL STAY: Included: 1. Cardiac catheterization that was performed by Dr. Garduno on 02/17/18 that showed no significant obstructive coronary artery disease. It was performed through right radial access. 2. The patient also had ICD implanted by Dr. Bowie on 02/23/18. LABORATORY DATA AND STUDIES PERFORMED DURING HOSPITAL STAY: On 02/23/18, sodium of 141, potassium 4.0, chloride 110, carbon dioxide 24, BUN 6, creatinine 0.63. Random glucose of 123, magnesium of 1.9, calcium of 8.8. Please note that at admission, the patient's potassium level was 2.6 and magnesium level was 1.8. Liver function tests initially obtained at admission showed bilirubin 0.9, AST of 41, ALT of 59, alkaline phosphatase of 57. The patient's troponin peaked at 0.31 on 02/18/18. TSH was, at admission, noted to be 4.72. Most recent chest x-ray obtained on 02/23/18, impression: "No active cardiopulmonary disease". Transesophageal echocardiogram obtained on 02/17/18 showed EF of 55% to 60% with mild concentric LVH with no significant valvular abnormalities. CT angiogram of the chest obtained on 02/18/18, impression: "Mild bibasilar fibrotic atelectasis change, greatest in the lower lobe with question of minimal patchy ground glass infiltrates. Otherwise, negative CTA of chest. No pulmonary embolism was identified." CONSULTATIONS DURING THE HOSPITAL STAY: Included Dr. Dalal, Dr. Bowie from Cardiology, Dr. Young, the education associate. HOSPITALIZATION COURSE: Sita Calderón is a 57-year-old female with history of Crohn's who had been hospitalized at [facility] for Crohn flare and discharged on 02/08/18. On 02/17/18, she went to [facility]. She did well, although she still felt weak after her hospitalization. She suddenly became unresponsive and collapsed into her chair. The people present at the concert started doing CPR and compression. It appeared that there was an AED on site and it was noted that the patient has a shockable rhythm and she was shocked. The rhythm noted to be V-fib/V-tach. The patient's potassium was noted to be 2.6 and she had prolonged QT interval. It was thought to be due to combination of severe hypokalemia, mild hypomagnesemia, and her being on diuretics as well as Effexor. The patient's QT was prolonged. The patient was seen by the Cardiology, rushed to the lab associate. Cardiac catheterization noted no significant coronary artery disease. The patient was seen by the education associate in the intensive care unit. The patient was also seen by Dr. Dalal , the non-fund development manager, and later on, Dr. Bowie. Both of our plant superintendent discussed the patient's case with the epic willow specialist in [place]. The patient was deemed to be a good candidate for ICD placement that was performed by Dr. Bowie on 02/22/18. Post ICD placement, the patient felt well and ICD was checked by our plant superintendent, Dr. Bowie. The patient is ready to be discharged on 02/23/18 to home. The patient's medications were changed and hydrochlorothiazide was held. The patient was started on nadolol. The patient's Effexor was also held. By the time of discharge, the patient had no further episodes of loose stools and no abdominal pain. Her electrolytes were back to normal. She is going to be discharged home on low dose of magnesium since her magnesium level on the day of discharge was 1.9. The patient is to follow up with the above-mentioned physicians as recommended. PHYSICAL EXAMINATION AT THE TIME OF DISCHARGE: Blood pressure of 130/71, heart rate of 65 and regular, respiratory rate 16, oxygen saturation 98% on room air, temperature 98.7. General: The patient is a very pleasant 57-year-old female, who is in no acute distress. Alert and oriented x3. HEENT: Head, atraumatic, normocephalic. Eyes: Pupils equal and reactive to light and accommodation. Oropharynx clear. Mucosa moist. Neck: Supple. No JVD. No bruit bilaterally. Cardiovascular: Regular rate and rhythm. No murmur. Respiratory : Clear to auscultation bilaterally. Abdomen: Soft, nontender. Bowel sounds present in all 4 quadrants. Extremities: There is no edema. Pulses +2 bilaterally. No clubbing or cyanosis. Neuro Evaluation: Speech clear. Cranial nerves II through XII grossly intact. Motor strength is 5/5 bilaterally. Please note that this is a short summary of the patient's hospitalization. Please refer to further medical records for details. TIME SPENT: Approximately 50 minutes were spent on the patient's discharge. [id number]/[facility] #: [id number] MTDD
== END 2018-02-23 15:38 | disposition home or self-care (01) | DRG 171 ==
LOC: ED 21:14 → CHICATH 22:17 → ICU 23:03 → MEDTELE 02-19 01:50
PROVIDERS: ADMIT Internal Medicine Cardiovascular Disease; ATTEND Internal Medicine
PROC: 4A023N7 Measurement of Cardiac Sampling and Pressure, Left Heart, Percutaneous Approach (ICD-10-PCS; 2018-02-17)
PROC: B2151ZZ Fluoroscopy of Left Heart using Low Osmolar Contrast (ICD-10-PCS; 2018-02-22)
PROC: B2111ZZ Fluoroscopy of Multiple Coronary Arteries using Low Osmolar Contrast (ICD-10-PCS; 2018-02-22)
PROC: 02H63JZ Insertion of Pacemaker Lead into Right Atrium, Percutaneous Approach (ICD-10-PCS; 2018-02-22)
PROC: 02HK3JZ Insertion of Pacemaker Lead into Right Ventricle, Percutaneous Approach (ICD-10-PCS; 2018-02-22)
PROC: 0JH606Z Insertion of Pacemaker, Dual Chamber into Chest Subcutaneous Tissue and Fascia, Open Approach (ICD-10-PCS; principal; 2018-02-22 11:15)
DX: I49.01 Ventricular fibrillation (principal); K50.90 Crohn's disease, unspecified, without complications; J98.11 Atelectasis; E87.1 Hypo-osmolality and hyponatremia; I46.2 Cardiac arrest due to underlying cardiac condition; I42.1 Obstructive hypertrophic cardiomyopathy; I45.81 Long QT syndrome; E11.9 Type 2 diabetes mellitus without complications; I10 Essential (primary) hypertension; K21.9 Gastro-esophageal reflux disease without esophagitis; E66.01 Morbid (severe) obesity due to excess calories; I25.10 Atherosclerotic heart disease of native coronary artery without angina pectoris; E87.6 Hypokalemia; I47.2 Ventricular tachycardia; E83.42 Hypomagnesemia; R07.89 Other chest pain; Z82.0 Family history of epilepsy and other diseases of the nervous system; Z87.891 Personal history of nicotine dependence; Z87.19 Personal history of other diseases of the digestive system; I25.2 Old myocardial infarction; Z82.49 Family history of ischemic heart disease and other diseases of the circulatory system; Z79.84 Long term (current) use of oral hypoglycemic drugs; Z68.36 Body mass index [BMI] 36.0-36.9, adult
CPT/HCPCS: 33249; 36415; 71045; 71046; 71275; 80048; 80053; 80061; 82550; 82553; 83036; 83605; 83735; 83880; 84132; 84443; 84484; 85025; 85610; 85730; 87641; 93005; 93306; 99156; 99157; 99285; A9270-GY; C1721; C1895; C1898; C8929; J0690; J1644; J1885; J2250; J2270; J2310; J2405; J3010; J3475; J3480; Q9967